=== PATIENT | female | born 1960 | race Caucasian/White ===

== ENCOUNTER 2021-03-21 19:17 | Inpatient (IN) ==
--- NOTE | 2021-03-21 19:35 | Emergency Department Note ---
HPI General Chief complaint: Nausea/Vomiting/Diarrhea Stated complaint: nausea/vomiting not taking insulin Time Seen by Provider: 03/21/21 19:30 Source: patient Mode of arrival: wheelchair Limitations: no limitations History of Present Illness HPI Narrative: Narrative: Patient is a 61-year-old female with insulin-dependent diabetes who has not been checking her blood sugars or using her insulin she is complaining of nausea and vomiting. She also reports a mild cough as well. Patient states she has been fully vaccinated for Covid as well as receiving a booster shot. She denies chest pain or abdominal pain her primary complaint is fatigue and vomiting. Related Data Home Medications Medication Instructions Recorded Confirmed aripiprazole 5 mg tablet 5 mg PO DAILY 06/27/18 03/21/21 atorvastatin 40 mg tablet 40 mg PO HS 06/27/18 03/21/21 brimonidine 0.2 %-timolol 0.5 % 1 drp BOTH EYES Q12H 06/27/18 01/22/21 eye drops furosemide 20 mg tablet 20 mg PO PRN PRN 06/27/18 01/22/21 gabapentin 800 mg tablet 800 mg PO TID 06/27/18 03/21/21 glucagon (human recombinant) 1 mg 1 mg IJ PRN PRN 06/27/18 03/21/21 solution for injection insulin aspart U-100 100 unit/mL 100 unit SQ DAILY 06/27/18 03/21/21 (3 mL) subcutaneous pen insulin glargine 100 unit/mL (3 100 unit SQ DAILY 06/27/18 03/21/21 mL) subcutaneous pen levothyroxine 137 mcg tablet 125 mcg PO DAILY 06/27/18 03/21/21 lisinopril 20 mg tablet 20 mg PO DAILY 06/27/18 01/22/21 morphine 100 mg capsule,extended 100 mg PO TID 06/27/18 03/21/21 release pellets omeprazole 20 mg capsule,delayed 20 mg PO ACB 06/27/18 01/22/21 release promethazine 25 mg tablet 25 mg PO PRN PRN 06/27/18 01/22/21 sertraline 100 mg tablet 100 mg PO DAILY 06/27/18 01/22/21 Allergies Allergy/AdvReac Type Severity Reaction Status Date / Time oxycodone AdvReac Mild Nausea Verified 01/24/20 14:19 Review of Systems ROS ROS Narrative: Narrative: All systems ED: reviewed and negative except as stated. PFSH Narrative Patient History Narrative: Narrative: Medical/Surgical/Family History All Active Problems (Updated 03/21/21 @ 23:35 by Homar Quintero DO) Vomiting (Acute) Hyperosmolar hyperglycemic state (HHS) (Acute) Myofascial pain (Acute) Metabolic syndrome (Chronic) Cervical spondylosis with radiculopathy (Chronic) Low back pain (Chronic) Lumbar stenosis with neurogenic claudication (Chronic) History of vaginal surgery (Chronic) History of elbow surgery (Chronic) History of right knee joint replacement (Chronic) History of surgery (Chronic) History of esophagogastroduodenoscopy (EGD) (Chronic) History of bunionectomy (Chronic) History of femur fracture (Chronic) History of hernia repair (Chronic) History of carpal tunnel release of both wrists (Chronic) History of total left knee replacement (Chronic) History of tonsillectomy (Chronic) History of thyroidectomy (Chronic) History of hysterectomy (Chronic) Arthropathy of cervical facet joint (Chronic) Diabetes mellitus with hyperosmolarity (Chronic) Hypertension (Chronic) Obesity (Chronic) COPD (chronic obstructive pulmonary disease) (Chronic) Depression (Chronic) GERD (gastroesophageal reflux disease) (Chronic) Anxiety disorder (Chronic) Hypothyroidism (Chronic) Osteoarthritis (Chronic) Peripheral neuropathy (Chronic) Peripheral edema (Chronic) Radiculopathy, lumbar region (Chronic) Chronic pain (Chronic) Disc displacement, lumbar (Chronic) Radiculopathy, cervical region (Chronic) Medical History Anxiety disorder Arthropathy of cervical facet joint Cervical spondylosis with radiculopathy Chronic pain COPD (chronic obstructive pulmonary disease) Depression Diabetes mellitus with hyperosmolarity Disc displacement, lumbar GERD (gastroesophageal reflux disease) History of femur fracture Hypertension Hypothyroidism Low back pain Lumbar stenosis with neurogenic claudication Metabolic syndrome Obesity Osteoarthritis Peripheral edema Peripheral neuropathy Radiculopathy, cervical region Radiculopathy, lumbar region Surgical History History of bunionectomy right tailors with v osteotomy History of carpal tunnel release of both wrists History of elbow surgery History of esophagogastroduodenoscopy (EGD) History of hernia repair History of hysterectomy History of right knee joint replacement History of surgery KEYUR #2 w/cath, w/sed 06/30/2019 KEYUR #1 w/cath, w/sed 06/13/19 TF MARGUERITE #3 Lt L4-5 w/sed 04/06/19 TF MARGUERITE #2 Lt. L4-5 w/sed 11/10/18 TF MARGUERITE #1 Lt L4-5 w/sed 10/27/18 History of surgery toenail removal, removal of left 2nd toe History of thyroidectomy History of tonsillectomy History of total left knee replacement History of vaginal surgery Family History Mother Hypertension Arthritis Father Hypertension Heart disease Alcohol abuse Diabetes Family/Other Diabetes Social History Smoking Status: Current every day smoker Alcohol Intake Frequency: does not drink Substance Use: does not use Exam Narrative Narrative: Narrative: General Limitations: no limitations General appearance: Present alert, in no apparent distress and thin Head Head: Present atraumatic and normocephalic Eye Eye: Present PERRL, EOMI and other (Exophthalmos noted) ENT ENT: Present normal oropharynx and mucous membranes dry Neck Neck: Present normal inspection, full ROM and trachea midline Chest Chest: Present normal inspection and symmetric chest wall rise Respiratory Respiratory: Present other (Breath sounds present bilateral lung huang, no respiratory distress mild adventitious lung sounds heard in bilateral lung huang.); Absent respiratory distress Cardiovascular Cardiovascular: Present regular rate and normal rhythm Adbominal Abdominal: Present soft and normal bowel sounds; Absent tenderness, guarding, rebound or organomegaly Rectal Rectal: Present deferred Extremities Extremities: Present normal inspection and full ROM; Absent tenderness Back Back: Present normal inspection and full ROM; Absent tenderness Neurological Neurological: Present alert, oriented X3 and CN II-XII intact Psychiatric Psychiatric: Present normal affect Skin Skin: Present warm (WNL); Absent rash Course Course Course Narrative: Work-up shows the patient to be hyperglycemic with an anion gap, no acidosis but positive for ketones. She is hyperglycemic hyperosmolar state. She received 2 L of IV fluids started on an insulin drip with IV fluids and potassium replacement. Attempted to admit the patient to our hospital here however we do not have available beds. Also attempted to transfer this patient to [facility] as well as [facility] however they do not have any available beds. Patient will board in the emergency department. Patient continued to have improvement in her symptoms. Her anion gap is improved. She is not acidotic her potassium has been replaced. Sugar is slowly trending down from 600 to the 300s. Attempted to admit the patient to our hospital here as well as [facility] and multiple other hospitals however they do not have any available beds. Patient will continue to board in the emergency department. The patient will be signed out at shift change to Dr. Luis Eduardo Ray. Vital Signs Vital signs: Vital Signs Temperature 97.0 F 03/21/21 19:19 Pulse Rate 75 03/21/21 19:19 Respiratory Rate 16 03/21/21 19:19 Blood Pressure 137/53 03/21/21 19:19 Pulse Oximetry (%) 98 03/21/21 19:19 Temperature 97.0 F 03/21/21 19:19 Pulse Rate 85 03/22/21 03:01 Respiratory Rate 16 03/21/21 19:19 Blood Pressure 121/44 03/22/21 03:01 Pulse Oximetry (%) 90 03/22/21 03:01 MDM MDM Narrative Medical decision making narrative: Narrative: Lab Data Result diagrams: 03/21/21 20:12 03/22/21 01:06 Labs: Lab Results 03/21/21 03/21/21 03/21/21 Range/Units 01:06 01:06 01:06 WBC (4.5-11.0) K/mcL RBC (3.59-5.38) M/mcL Hgb (11.2-15.7) g/dL Hct (34.1-44.9) % MCV (80.0-100.0) fL MCH (26.0-34.0) pg MCHC (31.0-36.0) g/dL RDW (11.5-14.5) % Plt Count (140-440) K/mcL MPV (7.4-10.4) fL Neut % (Auto) (38.0-78.0) % Lymph % (Auto) (15.5-49.0) % [place] % (Auto) (1.0-12.0) % Eos % (Auto) (0.0-7.0) % Baso % (Auto) (0.0-2.0) % Lymph # (Auto) (1.50-4.80) K/mcL [place] # (Auto) (0.10-0.90) K/mcL Eos # (Auto) (0.00-0.70) K/mcL Baso # (Auto) (0.00-0.30) K/mcL Absolute Neutrophils (1.80-8.00) K/mcL ABG Methemoglobin (0.4-1.5) % VBG pH (7.32-7.42) U VBG pCO2 (41.0-51.0) mmHg VBG pO2 (25.0-40.0) mmHg VBG HCO3 (24.0-28.0) mmol/L VBG Total CO2 (25.0-29.0) mmol/L VBG O2 Saturation (40.0-70.0) % VBG Base Excess (-2-3) VBG Lactic Acid 2.2 H (0.5-2.0) mmol/L Carboxyhemoglobin (0.0-1.5) % THgb Total Hemoglobin (12.0-15.0) gm/Dl Sodium 131 L (133-145) mmol/L Potassium 3.1 L (3.3-5.1) mmol/L Chloride 92 L (96-108) mmol/L Carbon Dioxide 14 L (22-30) mmol/L Anion Gap 25.0 H (8.0-16.0) BUN 29 H (6-20) mg/dL Creatinine 1.1 (0.6-1.1) mg/dL GFR Calculation 55 Glucose 507 H* (70-105) mg/dL Uric Acid 7.8 (2.5-8.0) mg/dL Calcium 7.3 L (8.6-10.4) mg/dL Phosphorus 3.0 (2.5-4.5) mg/dL Magnesium 1.7 TNP (1.6-2.5) mg/dL Total Bilirubin 0.6 (0.1-1.0) mg/dL Direct Bilirubin 0.2 (<0.3) mg/dL GGT 14 (5-36) U/L AST 13 (<32) U/L ALT 11 (<40) U/L Alkaline Phosphatase 85 (39-117) U/L Lactate Dehydrogenase 241 H (135-225) U/L Troponin T (<0.03) ng/mL NT-Pro-B Natriuret Pep (<125.0) pg/mL Total Protein 5.8 L (5.9-8.4) gm/dL Albumin 3.2 (3.2-5.2) gm/dL Globulin 2.6 (2.2-3.7) gm/dL Albumin/Globulin Ratio 1.2 (1.0-2.3) Triglycerides 136 (<150) mg/dL Lipase (7-60) U/L Beta-Hydroxybutyrate (<0.27) mmol/L TSH (0.27-5.01) uIU/mL Ethyl Alcohol (<0.010) gm/dL 03/21/21 03/21/21 03/21/21 Range/Units 01:06 20:12 20:12 WBC 11.8 H (4.5-11.0) K/mcL RBC 4.21 (3.59-5.38) M/mcL Hgb 12.7 (11.2-15.7) g/dL Hct 38.8 (34.1-44.9) % MCV 92.2 (80.0-100.0) fL MCH 30.2 (26.0-34.0) pg MCHC 32.7 (31.0-36.0) g/dL RDW 15.2 H (11.5-14.5) % Plt Count 321 (140-440) K/mcL MPV 10.7 H (7.4-10.4) fL Neut % (Auto) 88.4 H (38.0-78.0) % Lymph % (Auto) 5.7 L (15.5-49.0) % [place] % (Auto) 5.6 (1.0-12.0) % Eos % (Auto) 0.1 (0.0-7.0) % Baso % (Auto) 0.2 (0.0-2.0) % Lymph # (Auto) 0.67 L (1.50-4.80) K/mcL [place] # (Auto) 0.66 (0.10-0.90) K/mcL Eos # (Auto) 0.01 (0.00-0.70) K/mcL Baso # (Auto) 0.02 (0.00-0.30) K/mcL Absolute Neutrophils 10.45 H (1.80-8.00) K/mcL ABG Methemoglobin 0.3 L (0.4-1.5) % VBG pH 7.40 (7.32-7.42) U VBG pCO2 25.1 L (41.0-51.0) mmHg VBG pO2 142.3 H (25.0-40.0) mmHg VBG HCO3 15.2 L (24.0-28.0) mmol/L VBG Total CO2 15.9 L (25.0-29.0) mmol/L VBG O2 Saturation 93.7 H (40.0-70.0) % VBG Base Excess -8 L (-2-3) VBG Lactic Acid (0.5-2.0) mmol/L Carboxyhemoglobin 4.8 H (0.0-1.5) % THgb Total Hemoglobin 10.2 L (12.0-15.0) gm/Dl Sodium (133-145) mmol/L Potassium (3.3-5.1) mmol/L Chloride (96-108) mmol/L Carbon Dioxide (22-30) mmol/L Anion Gap (8.0-16.0) BUN (6-20) mg/dL Creatinine (0.6-1.1) mg/dL GFR Calculation Glucose (70-105) mg/dL Uric Acid (2.5-8.0) mg/dL Calcium (8.6-10.4) mg/dL Phosphorus (2.5-4.5) mg/dL Magnesium (1.6-2.5) mg/dL Total Bilirubin (0.1-1.0) mg/dL Direct Bilirubin (<0.3) mg/dL GGT (5-36) U/L AST (<32) U/L ALT (<40) U/L Alkaline Phosphatase (39-117) U/L Lactate Dehydrogenase (135-225) U/L Troponin T (<0.03) ng/mL NT-Pro-B Natriuret Pep (<125.0) pg/mL Total Protein (5.9-8.4) gm/dL Albumin (3.2-5.2) gm/dL Globulin (2.2-3.7) gm/dL Albumin/Globulin Ratio (1.0-2.3) Triglycerides (<150) mg/dL Lipase (7-60) U/L Beta-Hydroxybutyrate 6.47 H (<0.27) mmol/L TSH (0.27-5.01) uIU/mL Ethyl Alcohol (<0.010) gm/dL 03/21/21 03/21/21 03/21/21 Range/Units 20:12 20:12 20:13 WBC (4.5-11.0) K/mcL RBC (3.59-5.38) M/mcL Hgb (11.2-15.7) g/dL Hct (34.1-44.9) % MCV (80.0-100.0) fL MCH (26.0-34.0) pg MCHC (31.0-36.0) g/dL RDW (11.5-14.5) % Plt Count (140-440) K/mcL MPV (7.4-10.4) fL Neut % (Auto) (38.0-78.0) % Lymph % (Auto) (15.5-49.0) % [place] % (Auto) (1.0-12.0) % Eos % (Auto) (0.0-7.0) % Baso % (Auto) (0.0-2.0) % Lymph # (Auto) (1.50-4.80) K/mcL [place] # (Auto) (0.10-0.90) K/mcL Eos # (Auto) (0.00-0.70) K/mcL Baso # (Auto) (0.00-0.30) K/mcL Absolute Neutrophils (1.80-8.00) K/mcL ABG Methemoglobin (0.4-1.5) % VBG pH (7.32-7.42) U VBG pCO2 (41.0-51.0) mmHg VBG pO2 (25.0-40.0) mmHg VBG HCO3 (24.0-28.0) mmol/L VBG Total CO2 (25.0-29.0) mmol/L VBG O2 Saturation (40.0-70.0) % VBG Base Excess (-2-3) VBG Lactic Acid (0.5-2.0) mmol/L Carboxyhemoglobin (0.0-1.5) % THgb Total Hemoglobin (12.0-15.0) gm/Dl Sodium 134 (133-145) mmol/L Potassium 3.5 (3.3-5.1) mmol/L Chloride 83 L (96-108) mmol/L Carbon Dioxide 13 L (22-30) mmol/L Anion Gap 38.0 H (8.0-16.0) BUN 27 H (6-20) mg/dL Creatinine 1.0 (0.6-1.1) mg/dL GFR Calculation 61 Glucose 641 H* (70-105) mg/dL Uric Acid (2.5-8.0) mg/dL Calcium 8.7 (8.6-10.4) mg/dL Phosphorus (2.5-4.5) mg/dL Magnesium 1.9 (1.6-2.5) mg/dL Total Bilirubin 1.0 (0.1-1.0) mg/dL Direct Bilirubin (<0.3) mg/dL GGT (5-36) U/L AST 14 (<32) U/L ALT 12 (<40) U/L Alkaline Phosphatase 106 (39-117) U/L Lactate Dehydrogenase (135-225) U/L Troponin T (<0.03) ng/mL NT-Pro-B Natriuret Pep 2072.0 H (<125.0) pg/mL Total Protein 7.0 (5.9-8.4) gm/dL Albumin 4.0 (3.2-5.2) gm/dL Globulin 3.0 (2.2-3.7) gm/dL Albumin/Globulin Ratio 1.3 (1.0-2.3) Triglycerides (<150) mg/dL Lipase 17 (7-60) U/L Beta-Hydroxybutyrate (<0.27) mmol/L TSH 1.98 (0.27-5.01) uIU/mL Ethyl Alcohol < 0.010 (<0.010) gm/dL 03/21/21 03/21/21 03/21/21 Range/Units 20:13 20:13 20:13 WBC (4.5-11.0) K/mcL RBC (3.59-5.38) M/mcL Hgb (11.2-15.7) g/dL Hct (34.1-44.9) % MCV (80.0-100.0) fL MCH (26.0-34.0) pg MCHC (31.0-36.0) g/dL RDW (11.5-14.5) % Plt Count (140-440) K/mcL MPV (7.4-10.4) fL Neut % (Auto) (38.0-78.0) % Lymph % (Auto) (15.5-49.0) % [place] % (Auto) (1.0-12.0) % Eos % (Auto) (0.0-7.0) % Baso % (Auto) (0.0-2.0) % Lymph # (Auto) (1.50-4.80) K/mcL [place] # (Auto) (0.10-0.90) K/mcL Eos # (Auto) (0.00-0.70) K/mcL Baso # (Auto) (0.00-0.30) K/mcL Absolute Neutrophils (1.80-8.00) K/mcL ABG Methemoglobin 0.1 L (0.4-1.5) % VBG pH 7.40 (7.32-7.42) U VBG pCO2 27.3 L (41.0-51.0) mmHg VBG pO2 48.6 H (25.0-40.0) mmHg VBG HCO3 16.5 L (24.0-28.0) mmol/L VBG Total CO2 17.3 L (25.0-29.0) mmol/L VBG O2 Saturation 75.7 H (40.0-70.0) % VBG Base Excess -7 L (-2-3) VBG Lactic Acid 4.6 H* (0.5-2.0) mmol/L Carboxyhemoglobin 4.6 H (0.0-1.5) % THgb Total Hemoglobin 12.4 (12.0-15.0) gm/Dl Sodium (133-145) mmol/L Potassium (3.3-5.1) mmol/L Chloride (96-108) mmol/L Carbon Dioxide (22-30) mmol/L Anion Gap (8.0-16.0) BUN (6-20) mg/dL Creatinine (0.6-1.1) mg/dL GFR Calculation Glucose (70-105) mg/dL Uric Acid (2.5-8.0) mg/dL Calcium (8.6-10.4) mg/dL Phosphorus (2.5-4.5) mg/dL Magnesium (1.6-2.5) mg/dL Total Bilirubin (0.1-1.0) mg/dL Direct Bilirubin (<0.3) mg/dL GGT (5-36) U/L AST (<32) U/L ALT (<40) U/L Alkaline Phosphatase (39-117) U/L Lactate Dehydrogenase (135-225) U/L Troponin T < 0.01 (<0.03) ng/mL NT-Pro-B Natriuret Pep (<125.0) pg/mL Total Protein (5.9-8.4) gm/dL Albumin (3.2-5.2) gm/dL Globulin (2.2-3.7) gm/dL Albumin/Globulin Ratio (1.0-2.3) Triglycerides (<150) mg/dL Lipase (7-60) U/L Beta-Hydroxybutyrate (<0.27) mmol/L TSH (0.27-5.01) uIU/mL Ethyl Alcohol (<0.010) gm/dL 03/22/21 03/22/21 Range/Units 01:06 03:33 WBC (4.5-11.0) K/mcL RBC (3.59-5.38) M/mcL Hgb (11.2-15.7) g/dL Hct (34.1-44.9) % MCV (80.0-100.0) fL MCH (26.0-34.0) pg MCHC (31.0-36.0) g/dL RDW (11.5-14.5) % Plt Count (140-440) K/mcL MPV (7.4-10.4) fL Neut % (Auto) (38.0-78.0) % Lymph % (Auto) (15.5-49.0) % [place] % (Auto) (1.0-12.0) % Eos % (Auto) (0.0-7.0) % Baso % (Auto) (0.0-2.0) % Lymph # (Auto) (1.50-4.80) K/mcL [place] # (Auto) (0.10-0.90) K/mcL Eos # (Auto) (0.00-0.70) K/mcL Baso # (Auto) (0.00-0.30) K/mcL Absolute Neutrophils (1.80-8.00) K/mcL ABG Methemoglobin 0.3 L (0.4-1.5) % VBG pH 7.46 H (7.32-7.42) U VBG pCO2 29.9 L (41.0-51.0) mmHg VBG pO2 78.6 H (25.0-40.0) mmHg VBG HCO3 20.5 L (24.0-28.0) mmol/L VBG Total CO2 21.5 L (25.0-29.0) mmol/L VBG O2 Saturation 91.5 H (40.0-70.0) % VBG Base Excess -3 L (-2-3) VBG Lactic Acid (0.5-2.0) mmol/L Carboxyhemoglobin 3.7 H (0.0-1.5) % THgb Total Hemoglobin 10.1 L (12.0-15.0) gm/Dl Sodium TNP (133-145) mmol/L Potassium TNP (3.3-5.1) mmol/L Chloride TNP (96-108) mmol/L Carbon Dioxide TNP (22-30) mmol/L Anion Gap TNP (8.0-16.0) BUN TNP (6-20) mg/dL Creatinine TNP (0.6-1.1) mg/dL GFR Calculation TNP Glucose TNP (70-105) mg/dL Uric Acid (2.5-8.0) mg/dL Calcium TNP (8.6-10.4) mg/dL Phosphorus (2.5-4.5) mg/dL Magnesium (1.6-2.5) mg/dL Total Bilirubin (0.1-1.0) mg/dL Direct Bilirubin (<0.3) mg/dL GGT (5-36) U/L AST (<32) U/L ALT (<40) U/L Alkaline Phosphatase (39-117) U/L Lactate Dehydrogenase (135-225) U/L Troponin T (<0.03) ng/mL NT-Pro-B Natriuret Pep (<125.0) pg/mL Total Protein (5.9-8.4) gm/dL Albumin (3.2-5.2) gm/dL Globulin (2.2-3.7) gm/dL Albumin/Globulin Ratio (1.0-2.3) Triglycerides (<150) mg/dL Lipase (7-60) U/L Beta-Hydroxybutyrate (<0.27) mmol/L TSH (0.27-5.01) uIU/mL Ethyl Alcohol (<0.010) gm/dL Discharge Plan Patient/Caregiver Discharge Instructions Pt seen by CONTROL SYSTEMS DESIGNER/PA only: No Clinical Impression: Vomiting, Hyperosmolar hyperglycemic state (HHS) Patient Disposition: Still a Patient Condition: Fair Follow up with: Leonor Casillas MD [Primary Care Provider] - Prescriptions: No Action atorvastatin 40 MG tablet 40 mg PO HS 0RF levothyroxine 137 MCG tablet 125 mcg PO DAILY 0RF lisinopril 20 MG tablet 20 mg PO DAILY 0RF Label Comments: currently not taking sertraline 100 MG tablet 100 mg PO DAILY 0RF gabapentin 800 MG tablet 800 mg PO TID 0RF promethazine 25 MG tablet 25 mg PO PRN PRN (Reason: Nausea) 0RF glucagon (human recombinant) 1 MG recon soln 1 mg IJ PRN PRN (Reason: Hypoglycemia) 0RF omeprazole 20 MG capsule 20 mg PO ACB 0RF furosemide 20 MG tablet 20 mg PO PRN PRN (Reason: Edema) 0RF insulin aspart U-100 100 UNIT/ML insulin pen 100 unit SQ DAILY 0RF aripiprazole 5 MG tablet 5 mg PO DAILY 0RF morphine 100 MG capsule,extend.release pellets 100 mg PO TID 0RF insulin glargine 100 UNIT/ML insulin pen 100 unit SQ DAILY 0RF brimonidine-timolol 5 ML drops 1 drp BOTH EYES Q12H 0RF
[2021-03-21] MEDS ORDERED: 0.9 % SODIUM CHLORIDE 1,000 ML IV ONE (19:40)
[2021-03-21] MEDS ORDERED: ONDANSETRON 4 MG/2 ML VIAL IV ONE (19:40)
[2021-03-21 20:34] LABS: ABG Methemoglobin 0.1 % (0.4-1.5); Total Hemoglobin 12.4 gm/Dl (12.0-15.0); VBG Base Excess -7 (-2-3); VBG HCO3 16.5 mmol/L (24.0-28.0); VBG Oxygen Saturation 75.7 % (40.0-70.0); VBG PCO2 27.3 mmHg (41.0-51.0); VBG PO2 48.6 mmHg (25.0-40.0); VBG Total CO2 17.3 mmol/L (25.0-29.0)
[2021-03-21 20:35] LABS: Basophils # (Auto) 0.02 K/mcL (0.00-0.30); Basophils % (Auto) 0.2 % (0.0-2.0); Eosinophils # (Auto) 0.01 K/mcL (0.00-0.70); Eosinophils % (Auto) 0.1 % (0.0-7.0); Hematocrit 38.8 % (34.1-44.9); Hemoglobin 12.7 g/dL (11.2-15.7); Lymphocytes # (Auto) 0.67 K/mcL (1.50-4.80); Lymphocytes % (Auto) 5.7 % (15.5-49.0); Mean Cell Volume 92.2 fL (80.0-100.0); Mean Corpuscular HGB Conc 32.7 g/dL (31.0-36.0); Mean Platelet Volume 10.7 fL (7.4-10.4); Monocytes # (Auto) 0.66 K/mcL (0.10-0.90); Monocytes % (Auto) 5.6 % (1.0-12.0); Neutrophils % (Auto) 88.4 % (38.0-78.0); Platelet Count 321 K/mcL (140-440); RBC 4.21 M/mcL (3.59-5.38); Red Cell Distribution Width 15.2 % (11.5-14.5); WBC 11.8 K/mcL (4.5-11.0)
[2021-03-21 21:11] LABS: Alcohol, Blood < 10.0 mg/dL; Alcohol,Blood < 0.010 gm/dL (<0.010)
[2021-03-21 21:34] LABS: Thyroid Stimulating Hormone 1.98 uIU/mL (0.27-5.01)
[2021-03-21 21:39] LABS: ALT/SGPT 12 U/L (<40); AST/SGOT 14 U/L (<32); Albumin/Globulin Ratio 1.3 (1.0-2.3); Alkaline Phosphatase 106 U/L (39-117); Blood Urea Nitrogen 27 mg/dL (6-20); Calcium 8.7 mg/dL (8.6-10.4); Carbon Dioxide 13 mmol/L (22-30); Chloride 83 mmol/L (96-108); Glomerular Filtration Rate 61; Glucose 641 mg/dL (70-105)
[2021-03-21] MEDS ORDERED: 0.9 % SODIUM CHLORIDE 2,000 ML IV ONE (21:39)
[2021-03-21] MEDS ORDERED: POTASSIUM CHLORIDE 20 MEQ in DEXTROSE 5% IN WATER 250 ML IV ONE (22:04)
[2021-03-21] MEDS ORDERED: INSULIN REGULAR, HUMAN 50 UNIT in 0.9 % SODIUM CHLORIDE 99.5 ML IV SCH (22:15)
[2021-03-21 22:45] LABS: Beta Hydroxybutyrate 6.47 mmol/L (<0.27)
[2021-03-22 01:35] LABS: ABG Methemoglobin 0.3 % (0.4-1.5); Total Hemoglobin 10.2 gm/Dl (12.0-15.0); VBG Base Excess -8 (-2-3); VBG HCO3 15.2 mmol/L (24.0-28.0); VBG Oxygen Saturation 93.7 % (40.0-70.0); VBG PCO2 25.1 mmHg (41.0-51.0); VBG PO2 142.3 mmHg (25.0-40.0); VBG Total CO2 15.9 mmol/L (25.0-29.0)
[2021-03-22 01:50] LABS: Carbon Dioxide 14 mmol/L (22-30); Chloride 92 mmol/L (96-108)
[2021-03-22 01:53] LABS: ALT/SGPT 11 U/L (<40); AST/SGOT 13 U/L (<32); Albumin 3.2 gm/dL (3.2-5.2); Albumin/Globulin Ratio 1.2 (1.0-2.3); Alkaline Phosphatase 85 U/L (39-117); Bilirubin,Direct 0.2 mg/dL (<0.3); Bilirubin,Total 0.6 mg/dL (0.1-1.0); Blood Urea Nitrogen 29 mg/dL (6-20); Calcium 7.3 mg/dL (8.6-10.4); Globulin 2.6 gm/dL (2.2-3.7); Glomerular Filtration Rate 55; Glucose 507 mg/dL (70-105); Lactate Dehydrogenase 241 U/L (135-225); Triglycerides 136 mg/dL (<150); Uric Acid 7.8 mg/dL (2.5-8.0)
--- NOTE | 2021-03-22 02:22 | XRay Report ---
CLINICAL INFORMATION: Cough COMPARISON: 03/25/2007 TECHNIQUE: Portable FINDINGS: The heart is now mildly enlarged. Mediastinum is unremarkable. Upper lobe pulmonary vessels are mildly distended and there is mild interstitial edema throughout both lungs. There may be a superimposed infiltrate developing in the right base. Small right pleural effusion. IMPRESSION: Mild CHF. Possible superimposed developing right basilar infiltrate. Consider: Diuretic trial and repeat two view upright chest x-ray to better evaluate the lungs Interpreted and Authenticated by: Rodri Walter 03/22/21
[2021-03-22 03:56] LABS: ABG Methemoglobin 0.3 % (0.4-1.5); Total Hemoglobin 10.1 gm/Dl (12.0-15.0); VBG Base Excess -3 (-2-3); VBG HCO3 20.5 mmol/L (24.0-28.0); VBG Oxygen Saturation 91.5 % (40.0-70.0); VBG PCO2 29.9 mmHg (41.0-51.0); VBG PH 7.46 U (7.32-7.42); VBG PO2 78.6 mmHg (25.0-40.0); VBG Total CO2 21.5 mmol/L (25.0-29.0)
[2021-03-22] MEDS ORDERED: POTASSIUM CHLORIDE 40 MEQ in DEXTROSE 5% IN WATER 500 ML IV ONE (04:07)
[2021-03-22] MEDS ORDERED: 0.9 % SODIUM CHLORIDE 1,000 ML IV SCH (04:15)
[2021-03-22] MEDS ORDERED: POTASSIUM CHLORIDE 20 MEQ/10 ML VIAL IV ONE (04:18)
[2021-03-22] MEDS: DEXTROSE 5%-LR 1,000 ML IV SCH ×2 (06:35→13:44)
[2021-03-22 06:52] LABS: POC Blood Urea Nitrogen 25 mg/dL (6-20); POC CO2 21 mmol/L (22-30); POC Calcium, Ionized 1.06 mmEq/L (1.16-1.32); POC Chloride 99 mEq/L (96-108); POC Creatinine 0.8 mg/dL (0.6-1.2); POC Glucose, Random 232 mg/dL (70-105); POC Hematocrit 33 % (36-48); POC Potassium 3.4 mEql/L (3.3-5.1); POC Sodium 136 mEq/L (133-145)
--- NOTE | 2021-03-22 07:15 | Emergency Department Note ---
Course Course Course Narrative: I assumed care from Dr. Love at the change of shift. I evaluated the patient in person at 7:15 AM. She is awake and alert and answers questions appropriately. She reports improvement in her symptoms. Vital Signs Vital signs: Vital Signs Temperature 97.0 F 03/21/21 19:19 Pulse Rate 75 03/21/21 19:19 Respiratory Rate 16 03/21/21 19:19 Blood Pressure 137/53 03/21/21 19:19 Pulse Oximetry (%) 98 03/21/21 19:19 Temperature 97.0 F 03/21/21 19:19 Pulse Rate 77 03/22/21 14:01 Respiratory Rate 18 03/22/21 14:01 Blood Pressure 140/53 03/22/21 14:01 Pulse Oximetry (%) 94 03/22/21 14:01 MDM MDM Narrative Medical decision making narrative: Patient was eventually weaned off of the insulin infusion. She was able to tolerate food and small amounts but continued to have poor appetite. She remained somewhat confused throughout her emergency department stay. Given this and the recent repeated head trauma I obtained a CT scan that does not reveal any subdural hematoma. Given the chronicity of her mental status changes I do not think this is due to encephalitis or meningitis. I discussed the test results with the patient and explained my concerns that she is not doing well managing her medications at home and I do not think she is safe for discharge at this time. Patient was reluctantly agreeable to hospital admission. At the time of admission she is oriented to person place and situation but thinks the year is 1960 so she clearly does not have capacity to leave AGAINST MEDICAL ADVICE at this time. I discussed the patient's history examination and diagnostic findings with Dr. Lyons, who agrees with the plan of care and accepts admission. Lab Data Lab results reviewed: Yes I reviewed the patient's lab results. Result diagrams: 03/21/21 20:12 03/22/21 09:09 Labs: Lab Results 03/21/21 03/21/21 03/21/21 Range/Units 01:06 01:06 01:06 WBC (4.5-11.0) K/mcL RBC (3.59-5.38) M/mcL Hgb (11.2-15.7) g/dL Hct (34.1-44.9) % POC Hct (36-48) % MCV (80.0-100.0) fL MCH (26.0-34.0) pg MCHC (31.0-36.0) g/dL RDW (11.5-14.5) % Plt Count (140-440) K/mcL MPV (7.4-10.4) fL Neut % (Auto) (38.0-78.0) % Lymph % (Auto) (15.5-49.0) % [place] % (Auto) (1.0-12.0) % Eos % (Auto) (0.0-7.0) % Baso % (Auto) (0.0-2.0) % Lymph # (Auto) (1.50-4.80) K/mcL [place] # (Auto) (0.10-0.90) K/mcL Eos # (Auto) (0.00-0.70) K/mcL Baso # (Auto) (0.00-0.30) K/mcL Absolute Neutrophils (1.80-8.00) K/mcL ABG Methemoglobin (0.4-1.5) % VBG pH (7.32-7.42) U VBG pCO2 (41.0-51.0) mmHg VBG pO2 (25.0-40.0) mmHg VBG HCO3 (24.0-28.0) mmol/L VBG Total CO2 (25.0-29.0) mmol/L VBG O2 Saturation (40.0-70.0) % VBG Base Excess (-2-3) VBG Lactic Acid 2.2 H (0.5-2.0) mmol/L Carboxyhemoglobin (0.0-1.5) % THgb Total Hemoglobin (12.0-15.0) gm/Dl POC Sodium (133-145) mEq/L Sodium 131 L (133-145) mmol/L POC Potassium (3.3-5.1) mEql/L Potassium 3.1 L (3.3-5.1) mmol/L POC Chloride (96-108) mEq/L Chloride 92 L (96-108) mmol/L Carbon Dioxide 14 L (22-30) mmol/L POC Total CO2 (22-30) mmol/L Anion Gap 25.0 H (8.0-16.0) POC BUN (6-20) mg/dL BUN 29 H (6-20) mg/dL Creatinine 1.1 (0.6-1.1) mg/dL POC Creatinine (0.6-1.2) mg/dL GFR Calculation 55 Glucose 507 H* (70-105) mg/dL POC Glucose (70-105) mg/dL Uric Acid 7.8 (2.5-8.0) mg/dL Calcium 7.3 L (8.6-10.4) mg/dL POC WB Ioniz Calcium (1.16-1.32) mmEq/L Phosphorus 3.0 (2.5-4.5) mg/dL Magnesium 1.7 TNP (1.6-2.5) mg/dL Total Bilirubin 0.6 (0.1-1.0) mg/dL Direct Bilirubin 0.2 (<0.3) mg/dL GGT 14 (5-36) U/L AST 13 (<32) U/L ALT 11 (<40) U/L Alkaline Phosphatase 85 (39-117) U/L Lactate Dehydrogenase 241 H (135-225) U/L Troponin T (<0.03) ng/mL NT-Pro-B Natriuret Pep (<125.0) pg/mL Total Protein 5.8 L (5.9-8.4) gm/dL Albumin 3.2 (3.2-5.2) gm/dL Globulin 2.6 (2.2-3.7) gm/dL Albumin/Globulin Ratio 1.2 (1.0-2.3) Triglycerides 136 (<150) mg/dL Lipase (7-60) U/L Beta-Hydroxybutyrate (<0.27) mmol/L TSH (0.27-5.01) uIU/mL Ethyl Alcohol (<0.010) gm/dL 03/21/21 03/21/21 03/21/21 Range/Units 01:06 20:12 20:12 WBC 11.8 H (4.5-11.0) K/mcL RBC 4.21 (3.59-5.38) M/mcL Hgb 12.7 (11.2-15.7) g/dL Hct 38.8 (34.1-44.9) % POC Hct (36-48) % MCV 92.2 (80.0-100.0) fL MCH 30.2 (26.0-34.0) pg MCHC 32.7 (31.0-36.0) g/dL RDW 15.2 H (11.5-14.5) % Plt Count 321 (140-440) K/mcL MPV 10.7 H (7.4-10.4) fL Neut % (Auto) 88.4 H (38.0-78.0) % Lymph % (Auto) 5.7 L (15.5-49.0) % [place] % (Auto) 5.6 (1.0-12.0) % Eos % (Auto) 0.1 (0.0-7.0) % Baso % (Auto) 0.2 (0.0-2.0) % Lymph # (Auto) 0.67 L (1.50-4.80) K/mcL [place] # (Auto) 0.66 (0.10-0.90) K/mcL Eos # (Auto) 0.01 (0.00-0.70) K/mcL Baso # (Auto) 0.02 (0.00-0.30) K/mcL Absolute Neutrophils 10.45 H (1.80-8.00) K/mcL ABG Methemoglobin 0.3 L (0.4-1.5) % VBG pH 7.40 (7.32-7.42) U VBG pCO2 25.1 L (41.0-51.0) mmHg VBG pO2 142.3 H (25.0-40.0) mmHg VBG HCO3 15.2 L (24.0-28.0) mmol/L VBG Total CO2 15.9 L (25.0-29.0) mmol/L VBG O2 Saturation 93.7 H (40.0-70.0) % VBG Base Excess -8 L (-2-3) VBG Lactic Acid (0.5-2.0) mmol/L Carboxyhemoglobin 4.8 H (0.0-1.5) % THgb Total Hemoglobin 10.2 L (12.0-15.0) gm/Dl POC Sodium (133-145) mEq/L Sodium (133-145) mmol/L POC Potassium (3.3-5.1) mEql/L Potassium (3.3-5.1) mmol/L POC Chloride (96-108) mEq/L Chloride (96-108) mmol/L Carbon Dioxide (22-30) mmol/L POC Total CO2 (22-30) mmol/L Anion Gap (8.0-16.0) POC BUN (6-20) mg/dL BUN (6-20) mg/dL Creatinine (0.6-1.1) mg/dL POC Creatinine (0.6-1.2) mg/dL GFR Calculation Glucose (70-105) mg/dL POC Glucose (70-105) mg/dL Uric Acid (2.5-8.0) mg/dL Calcium (8.6-10.4) mg/dL POC WB Ioniz Calcium (1.16-1.32) mmEq/L Phosphorus (2.5-4.5) mg/dL Magnesium (1.6-2.5) mg/dL Total Bilirubin (0.1-1.0) mg/dL Direct Bilirubin (<0.3) mg/dL GGT (5-36) U/L AST (<32) U/L ALT (<40) U/L Alkaline Phosphatase (39-117) U/L Lactate Dehydrogenase (135-225) U/L Troponin T (<0.03) ng/mL NT-Pro-B Natriuret Pep (<125.0) pg/mL Total Protein (5.9-8.4) gm/dL Albumin (3.2-5.2) gm/dL Globulin (2.2-3.7) gm/dL Albumin/Globulin Ratio (1.0-2.3) Triglycerides (<150) mg/dL Lipase (7-60) U/L Beta-Hydroxybutyrate 6.47 H (<0.27) mmol/L TSH (0.27-5.01) uIU/mL Ethyl Alcohol (<0.010) gm/dL 03/21/21 03/21/21 03/21/21 Range/Units 20:12 20:12 20:13 WBC (4.5-11.0) K/mcL RBC (3.59-5.38) M/mcL Hgb (11.2-15.7) g/dL Hct (34.1-44.9) % POC Hct (36-48) % MCV (80.0-100.0) fL MCH (26.0-34.0) pg MCHC (31.0-36.0) g/dL RDW (11.5-14.5) % Plt Count (140-440) K/mcL MPV (7.4-10.4) fL Neut % (Auto) (38.0-78.0) % Lymph % (Auto) (15.5-49.0) % [place] % (Auto) (1.0-12.0) % Eos % (Auto) (0.0-7.0) % Baso % (Auto) (0.0-2.0) % Lymph # (Auto) (1.50-4.80) K/mcL [place] # (Auto) (0.10-0.90) K/mcL Eos # (Auto) (0.00-0.70) K/mcL Baso # (Auto) (0.00-0.30) K/mcL Absolute Neutrophils (1.80-8.00) K/mcL ABG Methemoglobin (0.4-1.5) % VBG pH (7.32-7.42) U VBG pCO2 (41.0-51.0) mmHg VBG pO2 (25.0-40.0) mmHg VBG HCO3 (24.0-28.0) mmol/L VBG Total CO2 (25.0-29.0) mmol/L VBG O2 Saturation (40.0-70.0) % VBG Base Excess (-2-3) VBG Lactic Acid (0.5-2.0) mmol/L Carboxyhemoglobin (0.0-1.5) % THgb Total Hemoglobin (12.0-15.0) gm/Dl POC Sodium (133-145) mEq/L Sodium 134 (133-145) mmol/L POC Potassium (3.3-5.1) mEql/L Potassium 3.5 (3.3-5.1) mmol/L POC Chloride (96-108) mEq/L Chloride 83 L (96-108) mmol/L Carbon Dioxide 13 L (22-30) mmol/L POC Total CO2 (22-30) mmol/L Anion Gap 38.0 H (8.0-16.0) POC BUN (6-20) mg/dL BUN 27 H (6-20) mg/dL Creatinine 1.0 (0.6-1.1) mg/dL POC Creatinine (0.6-1.2) mg/dL GFR Calculation 61 Glucose 641 H* (70-105) mg/dL POC Glucose (70-105) mg/dL Uric Acid (2.5-8.0) mg/dL Calcium 8.7 (8.6-10.4) mg/dL POC WB Ioniz Calcium (1.16-1.32) mmEq/L Phosphorus (2.5-4.5) mg/dL Magnesium 1.9 (1.6-2.5) mg/dL Total Bilirubin 1.0 (0.1-1.0) mg/dL Direct Bilirubin (<0.3) mg/dL GGT (5-36) U/L AST 14 (<32) U/L ALT 12 (<40) U/L Alkaline Phosphatase 106 (39-117) U/L Lactate Dehydrogenase (135-225) U/L Troponin T (<0.03) ng/mL NT-Pro-B Natriuret Pep 2072.0 H (<125.0) pg/mL Total Protein 7.0 (5.9-8.4) gm/dL Albumin 4.0 (3.2-5.2) gm/dL Globulin 3.0 (2.2-3.7) gm/dL Albumin/Globulin Ratio 1.3 (1.0-2.3) Triglycerides (<150) mg/dL Lipase 17 (7-60) U/L Beta-Hydroxybutyrate (<0.27) mmol/L TSH 1.98 (0.27-5.01) uIU/mL Ethyl Alcohol < 0.010 (<0.010) gm/dL 03/21/21 03/21/21 03/21/21 Range/Units 20:13 20:13 20:13 WBC (4.5-11.0) K/mcL RBC (3.59-5.38) M/mcL Hgb (11.2-15.7) g/dL Hct (34.1-44.9) % POC Hct (36-48) % MCV (80.0-100.0) fL MCH (26.0-34.0) pg MCHC (31.0-36.0) g/dL RDW (11.5-14.5) % Plt Count (140-440) K/mcL MPV (7.4-10.4) fL Neut % (Auto) (38.0-78.0) % Lymph % (Auto) (15.5-49.0) % [place] % (Auto) (1.0-12.0) % Eos % (Auto) (0.0-7.0) % Baso % (Auto) (0.0-2.0) % Lymph # (Auto) (1.50-4.80) K/mcL [place] # (Auto) (0.10-0.90) K/mcL Eos # (Auto) (0.00-0.70) K/mcL Baso # (Auto) (0.00-0.30) K/mcL Absolute Neutrophils (1.80-8.00) K/mcL ABG Methemoglobin 0.1 L (0.4-1.5) % VBG pH 7.40 (7.32-7.42) U VBG pCO2 27.3 L (41.0-51.0) mmHg VBG pO2 48.6 H (25.0-40.0) mmHg VBG HCO3 16.5 L (24.0-28.0) mmol/L VBG Total CO2 17.3 L (25.0-29.0) mmol/L VBG O2 Saturation 75.7 H (40.0-70.0) % VBG Base Excess -7 L (-2-3) VBG Lactic Acid 4.6 H* (0.5-2.0) mmol/L Carboxyhemoglobin 4.6 H (0.0-1.5) % THgb Total Hemoglobin 12.4 (12.0-15.0) gm/Dl POC Sodium (133-145) mEq/L Sodium (133-145) mmol/L POC Potassium (3.3-5.1) mEql/L Potassium (3.3-5.1) mmol/L POC Chloride (96-108) mEq/L Chloride (96-108) mmol/L Carbon Dioxide (22-30) mmol/L POC Total CO2 (22-30) mmol/L Anion Gap (8.0-16.0) POC BUN (6-20) mg/dL BUN (6-20) mg/dL Creatinine (0.6-1.1) mg/dL POC Creatinine (0.6-1.2) mg/dL GFR Calculation Glucose (70-105) mg/dL POC Glucose (70-105) mg/dL Uric Acid (2.5-8.0) mg/dL Calcium (8.6-10.4) mg/dL POC WB Ioniz Calcium (1.16-1.32) mmEq/L Phosphorus (2.5-4.5) mg/dL Magnesium (1.6-2.5) mg/dL Total Bilirubin (0.1-1.0) mg/dL Direct Bilirubin (<0.3) mg/dL GGT (5-36) U/L AST (<32) U/L ALT (<40) U/L Alkaline Phosphatase (39-117) U/L Lactate Dehydrogenase (135-225) U/L Troponin T < 0.01 (<0.03) ng/mL NT-Pro-B Natriuret Pep (<125.0) pg/mL Total Protein (5.9-8.4) gm/dL Albumin (3.2-5.2) gm/dL Globulin (2.2-3.7) gm/dL Albumin/Globulin Ratio (1.0-2.3) Triglycerides (<150) mg/dL Lipase (7-60) U/L Beta-Hydroxybutyrate (<0.27) mmol/L TSH (0.27-5.01) uIU/mL Ethyl Alcohol (<0.010) gm/dL 03/22/21 03/22/21 03/22/21 Range/Units 01:06 03:33 06:45 WBC (4.5-11.0) K/mcL RBC (3.59-5.38) M/mcL Hgb (11.2-15.7) g/dL Hct (34.1-44.9) % POC Hct 33 L (36-48) % MCV (80.0-100.0) fL MCH (26.0-34.0) pg MCHC (31.0-36.0) g/dL RDW (11.5-14.5) % Plt Count (140-440) K/mcL MPV (7.4-10.4) fL Neut % (Auto) (38.0-78.0) % Lymph % (Auto) (15.5-49.0) % [place] % (Auto) (1.0-12.0) % Eos % (Auto) (0.0-7.0) % Baso % (Auto) (0.0-2.0) % Lymph # (Auto) (1.50-4.80) K/mcL [place] # (Auto) (0.10-0.90) K/mcL Eos # (Auto) (0.00-0.70) K/mcL Baso # (Auto) (0.00-0.30) K/mcL Absolute Neutrophils (1.80-8.00) K/mcL ABG Methemoglobin 0.3 L (0.4-1.5) % VBG pH 7.46 H (7.32-7.42) U VBG pCO2 29.9 L (41.0-51.0) mmHg VBG pO2 78.6 H (25.0-40.0) mmHg VBG HCO3 20.5 L (24.0-28.0) mmol/L VBG Total CO2 21.5 L (25.0-29.0) mmol/L VBG O2 Saturation 91.5 H (40.0-70.0) % VBG Base Excess -3 L (-2-3) VBG Lactic Acid (0.5-2.0) mmol/L Carboxyhemoglobin 3.7 H (0.0-1.5) % THgb Total Hemoglobin 10.1 L (12.0-15.0) gm/Dl POC Sodium 136 (133-145) mEq/L Sodium TNP (133-145) mmol/L POC Potassium 3.4 (3.3-5.1) mEql/L Potassium TNP (3.3-5.1) mmol/L POC Chloride 99 (96-108) mEq/L Chloride TNP (96-108) mmol/L Carbon Dioxide TNP (22-30) mmol/L POC Total CO2 21 L (22-30) mmol/L Anion Gap TNP (8.0-16.0) POC BUN 25 H (6-20) mg/dL BUN TNP (6-20) mg/dL Creatinine TNP (0.6-1.1) mg/dL POC Creatinine 0.8 (0.6-1.2) mg/dL GFR Calculation TNP Glucose TNP (70-105) mg/dL POC Glucose 232 H (70-105) mg/dL Uric Acid (2.5-8.0) mg/dL Calcium TNP (8.6-10.4) mg/dL POC WB Ioniz Calcium 1.06 L (1.16-1.32) mmEq/L Phosphorus (2.5-4.5) mg/dL Magnesium (1.6-2.5) mg/dL Total Bilirubin (0.1-1.0) mg/dL Direct Bilirubin (<0.3) mg/dL GGT (5-36) U/L AST (<32) U/L ALT (<40) U/L Alkaline Phosphatase (39-117) U/L Lactate Dehydrogenase (135-225) U/L Troponin T (<0.03) ng/mL NT-Pro-B Natriuret Pep (<125.0) pg/mL Total Protein (5.9-8.4) gm/dL Albumin (3.2-5.2) gm/dL Globulin (2.2-3.7) gm/dL Albumin/Globulin Ratio (1.0-2.3) Triglycerides (<150) mg/dL Lipase (7-60) U/L Beta-Hydroxybutyrate (<0.27) mmol/L TSH (0.27-5.01) uIU/mL Ethyl Alcohol (<0.010) gm/dL 03/22/21 Range/Units 09:09 WBC (4.5-11.0) K/mcL RBC (3.59-5.38) M/mcL Hgb (11.2-15.7) g/dL Hct (34.1-44.9) % POC Hct (36-48) % MCV (80.0-100.0) fL MCH (26.0-34.0) pg MCHC (31.0-36.0) g/dL RDW (11.5-14.5) % Plt Count (140-440) K/mcL MPV (7.4-10.4) fL Neut % (Auto) (38.0-78.0) % Lymph % (Auto) (15.5-49.0) % [place] % (Auto) (1.0-12.0) % Eos % (Auto) (0.0-7.0) % Baso % (Auto) (0.0-2.0) % Lymph # (Auto) (1.50-4.80) K/mcL [place] # (Auto) (0.10-0.90) K/mcL Eos # (Auto) (0.00-0.70) K/mcL Baso # (Auto) (0.00-0.30) K/mcL Absolute Neutrophils (1.80-8.00) K/mcL ABG Methemoglobin (0.4-1.5) % VBG pH (7.32-7.42) U VBG pCO2 (41.0-51.0) mmHg VBG pO2 (25.0-40.0) mmHg VBG HCO3 (24.0-28.0) mmol/L VBG Total CO2 (25.0-29.0) mmol/L VBG O2 Saturation (40.0-70.0) % VBG Base Excess (-2-3) VBG Lactic Acid (0.5-2.0) mmol/L Carboxyhemoglobin (0.0-1.5) % THgb Total Hemoglobin (12.0-15.0) gm/Dl POC Sodium (133-145) mEq/L Sodium 133 (133-145) mmol/L POC Potassium (3.3-5.1) mEql/L Potassium 3.2 L (3.3-5.1) mmol/L POC Chloride (96-108) mEq/L Chloride 99 (96-108) mmol/L Carbon Dioxide 22 (22-30) mmol/L POC Total CO2 (22-30) mmol/L Anion Gap 12.0 (8.0-16.0) POC BUN (6-20) mg/dL BUN 23 H (6-20) mg/dL Creatinine 0.9 (0.6-1.1) mg/dL POC Creatinine (0.6-1.2) mg/dL GFR Calculation 69 Glucose 125 H (70-105) mg/dL POC Glucose (70-105) mg/dL Uric Acid (2.5-8.0) mg/dL Calcium 7.8 L (8.6-10.4) mg/dL POC WB Ioniz Calcium (1.16-1.32) mmEq/L Phosphorus (2.5-4.5) mg/dL Magnesium (1.6-2.5) mg/dL Total Bilirubin (0.1-1.0) mg/dL Direct Bilirubin (<0.3) mg/dL GGT (5-36) U/L AST (<32) U/L ALT (<40) U/L Alkaline Phosphatase (39-117) U/L Lactate Dehydrogenase (135-225) U/L Troponin T (<0.03) ng/mL NT-Pro-B Natriuret Pep (<125.0) pg/mL Total Protein (5.9-8.4) gm/dL Albumin (3.2-5.2) gm/dL Globulin (2.2-3.7) gm/dL Albumin/Globulin Ratio (1.0-2.3) Triglycerides (<150) mg/dL Lipase (7-60) U/L Beta-Hydroxybutyrate (<0.27) mmol/L TSH (0.27-5.01) uIU/mL Ethyl Alcohol (<0.010) gm/dL Discharge Plan Patient/Caregiver Discharge Instructions Pt seen by [employer]/PA only: No Clinical Impression: Vomiting, Acute hyperglycemia Patient Disposition: Xfer As Inpt ([facility]) Condition: Fair Follow up with: Leonor Casillas MD [Primary Care Provider] - Prescriptions: No Action atorvastatin 40 MG tablet 40 mg PO HS 0RF levothyroxine 137 MCG tablet 125 mcg PO DAILY 0RF lisinopril 20 MG tablet 20 mg PO DAILY 0RF Label Comments: currently not taking sertraline 100 MG tablet 100 mg PO DAILY 0RF gabapentin 800 MG tablet 800 mg PO TID 0RF promethazine 25 MG tablet 25 mg PO PRN PRN (Reason: Nausea) 0RF glucagon (human recombinant) 1 MG recon soln 1 mg IJ PRN PRN (Reason: Hypoglycemia) 0RF omeprazole 20 MG capsule 20 mg PO ACB 0RF furosemide 20 MG tablet 20 mg PO PRN PRN (Reason: Edema) 0RF insulin aspart U-100 100 UNIT/ML insulin pen 100 unit SQ DAILY 0RF aripiprazole 5 MG tablet 5 mg PO DAILY 0RF morphine 100 MG capsule,extend.release pellets 100 mg PO TID 0RF insulin glargine 100 UNIT/ML insulin pen 100 unit SQ DAILY 0RF brimonidine-timolol 5 ML drops 1 drp BOTH EYES Q12H 0RF
[2021-03-22 10:33] LABS: Blood Urea Nitrogen 23 mg/dL (6-20); Calcium 7.8 mg/dL (8.6-10.4); Carbon Dioxide 22 mmol/L (22-30); Chloride 99 mmol/L (96-108); Glomerular Filtration Rate 69; Glucose 125 mg/dL (70-105)
[2021-03-22] MEDS ORDERED: INSULIN GLARGINE, HUMAN 1 UNIT/0.01 ML SQ ONE (10:40)
[2021-03-22] MEDS ORDERED: POTASSIUM CHLORIDE 20 MEQ PACKET PO ONE (10:55)
[2021-03-22] MEDS ORDERED: MAGNESIUM OXIDE 400 MG TABLET PO ONE (10:55)
[2021-03-22] MEDS ORDERED: INSULIN REGULAR, HUMAN 50 UNIT in 0.9 % SODIUM CHLORIDE 99.5 ML IV SCH (11:00)
--- NOTE | 2021-03-22 13:13 | Cat Scan Report ---
CLINICAL INFORMATION: Trauma COMPARISON: None. TECHNIQUE: 2.5 mm helical slices were obtained in the skull base to vertex. Following reconstruction, axial reformatted images were reviewed at bone and parenchymal windows. The exam was performed using radiation dose optimization techniques including, but not limited to, automated exposure control, adjustment of the mA and/or kV according to patient size and use of iterative reconstruction technique. FINDINGS: The ventricles, sulci, fissures, and cisterns are symmetrically enlarged compatible with mild age-related atrophy. No extra-axial fluid collections are identified. Mild patchy chronic ischemic changes, in the deep cerebral white matter, are expected for age. There is a 5 mm remote lacunar infarct in the posterior left deep frontal white matter. There is no hemorrhage, mass effect, or edema. Bone windows show no osseous abnormality. IMPRESSION: Mild atrophy and chronic ischemic changes in the deep cerebral white matter-expected for age. 5 mm remote lacunar infarct deep left frontal white matter. No cerebral hemorrhage or other acute finding Interpreted and Authenticated by: Rodri Walter 03/22/21
--- NOTE | 2021-03-22 15:28 | Internal Med History&Physical ---
HPI History of Present Illness Patient information: Note initiated : 03/22/21 at 3:15 pm Service Date, if different from initiated Date: [] Patient: Erin Toledo a 61 y/o F admitted on for nausea/vomiting not taking insulin. Chief Complaint: [] History of present illness: Ms. Toledo is a 61 year old F Presents the ED with nausea vomiting. Patient was recently at [place] ED with hypoglycemia. She ended up stopping her insulin altogether and stating she also did not feel well as part of the reason. Diagnosed in the ED with DKA, she also had confusion at the time. She lives alone. No beds available in the hospital or surrounding so patient was treated in the ED. For the next 24 hours for DKA was resolved however she still has some confusion and it was felt that she was unsafe to go home by herself concerned about her being able to take her medications appropriately. Also still quite weak. Per notes from my discussion with her daughter it sounds like she has had some confusion for a while. CT of the brain in the ED H show chronic ischemic changes and an old infarct left frontal. Patient complains of nausea vomiting some diarrhea. Complains of some abdominal pain from the vomiting. She has had some cough for few weeks and some shortness of breath. She is oxygenating well on room air in the ED. She denies fevers or chills and is afebrile and vital signs in the ED. Review of Systems: Pertinent positives as above denies headache/fever/chills/chest pain. Remaining 10 point review of system reviewed negative PFSH PFSH All Active Problems (Updated 03/22/21 @ 11:59 by Luis Eduardo Ray DO) Vomiting (Acute) Acute hyperglycemia (Acute) Myofascial pain (Acute) Metabolic syndrome (Chronic) Cervical spondylosis with radiculopathy (Chronic) Low back pain (Chronic) Lumbar stenosis with neurogenic claudication (Chronic) History of vaginal surgery (Chronic) History of elbow surgery (Chronic) History of right knee joint replacement (Chronic) History of surgery (Chronic) History of esophagogastroduodenoscopy (EGD) (Chronic) History of bunionectomy (Chronic) History of femur fracture (Chronic) History of hernia repair (Chronic) History of carpal tunnel release of both wrists (Chronic) History of total left knee replacement (Chronic) History of tonsillectomy (Chronic) History of thyroidectomy (Chronic) History of hysterectomy (Chronic) Arthropathy of cervical facet joint (Chronic) Diabetes mellitus with hyperosmolarity (Chronic) Hypertension (Chronic) Obesity (Chronic) COPD (chronic obstructive pulmonary disease) (Chronic) Depression (Chronic) GERD (gastroesophageal reflux disease) (Chronic) Anxiety disorder (Chronic) Hypothyroidism (Chronic) Osteoarthritis (Chronic) Peripheral neuropathy (Chronic) Peripheral edema (Chronic) Radiculopathy, lumbar region (Chronic) Chronic pain (Chronic) Disc displacement, lumbar (Chronic) Radiculopathy, cervical region (Chronic) Medical History Anxiety disorder Arthropathy of cervical facet joint Cervical spondylosis with radiculopathy Chronic pain COPD (chronic obstructive pulmonary disease) Depression Diabetes mellitus with hyperosmolarity Disc displacement, lumbar GERD (gastroesophageal reflux disease) History of femur fracture Hypertension Hypothyroidism Low back pain Lumbar stenosis with neurogenic claudication Metabolic syndrome Obesity Osteoarthritis Peripheral edema Peripheral neuropathy Radiculopathy, cervical region Radiculopathy, lumbar region Surgical History History of bunionectomy right tailors with v osteotomy History of carpal tunnel release of both wrists History of elbow surgery History of esophagogastroduodenoscopy (EGD) History of hernia repair History of hysterectomy History of right knee joint replacement History of surgery KEYUR #2 w/cath, w/sed 06/30/2019 KEYUR #1 w/cath, w/sed 06/13/19 TF MARGUERITE #3 Lt L4-5 w/sed 04/06/19 TF MARGUERITE #2 Lt. L4-5 w/sed 11/10/18 TF MARGUERITE #1 Lt L4-5 w/sed 10/27/18 History of surgery toenail removal, removal of left 2nd toe History of thyroidectomy History of tonsillectomy History of total left knee replacement History of vaginal surgery Family History Mother Hypertension Arthritis Father Hypertension Heart disease Alcohol abuse Diabetes Family/Other Diabetes Social History (Updated 01/25/20 @ 09:08 by Nini Avila) marital status: single education level: high school occupational status: disabled alcohol intake frequency: does not drink substance use type: does not use MEDS/ALLERGIES Home Medications and Allergies Home Medications Medication Instructions Recorded Confirmed Type aripiprazole 5 mg tablet 5 mg PO DAILY 06/27/18 03/21/21 History atorvastatin 40 mg tablet 40 mg PO HS 06/27/18 03/21/21 History brimonidine 0.2 %-timolol 0.5 % 1 drp BOTH EYES Q12H 06/27/18 01/22/21 History eye drops furosemide 20 mg tablet 20 mg PO PRN PRN 06/27/18 01/22/21 History gabapentin 800 mg tablet 800 mg PO TID 06/27/18 03/21/21 History glucagon (human recombinant) 1 mg 1 mg IJ PRN PRN 06/27/18 03/21/21 History solution for injection insulin aspart U-100 100 unit/mL 100 unit SQ DAILY 06/27/18 03/21/21 History (3 mL) subcutaneous pen insulin glargine 100 unit/mL (3 100 unit SQ DAILY 06/27/18 03/21/21 History mL) subcutaneous pen levothyroxine 137 mcg tablet 125 mcg PO DAILY 06/27/18 03/21/21 History lisinopril 20 mg tablet 20 mg PO DAILY 06/27/18 01/22/21 History morphine 100 mg capsule,extended 100 mg PO TID 06/27/18 03/21/21 History release pellets omeprazole 20 mg capsule,delayed 20 mg PO ACB 06/27/18 01/22/21 History release promethazine 25 mg tablet 25 mg PO PRN PRN 06/27/18 01/22/21 History sertraline 100 mg tablet 100 mg PO DAILY 06/27/18 01/22/21 History Allergies Allergy/AdvReac Type Severity Reaction Status Date / Time oxycodone AdvReac Mild Nausea Verified 01/24/20 14:19 EXAM Constitutional Vitals: Temp Pulse Resp BP Pulse Ox 97.0 F 77 18 140/53 94 03/21/21 19:19 03/22/21 14:01 03/22/21 14:01 03/22/21 14:01 03/22/21 14:01 Exam: General: Appears weak, no acute Distress, obese Eyes/N/T: EOMI, PERRL, dry MM Head/Neck: neck supple no nuchal rigidity, normocephalic atraumatic CV: RRR, No murmurs, normal s1/s2 Pulm: Clear b/l, no wheezing/rhonchi/rales Abd: soft, nontender, +BS x4 Ext: no cyanosis but clubbing noted, chronic edeme evident currently trace b/l LE edema Neuro: Mildly lethargic, no focal deficits, moves all extremities, CN 2-12 grossly intact, symmetrical strength b/l upper/lower, sensations intact b/l upper/lower Skin: warm/dry DATA Data Completed and Pending Labs: Labs from last 24 hours 03/22/21 03/22/21 03/22/21 09:09 06:45 03:33 WBC RBC Hgb Hct POC Hct 33 L MCV MCH MCHC RDW Plt Count MPV Neut % (Auto) Lymph % (Auto) [place] % (Auto) Eos % (Auto) Baso % (Auto) Lymph # (Auto) [place] # (Auto) Eos # (Auto) Baso # (Auto) Absolute Neutrophils ABG Methemoglobin 0.3 L VBG pH 7.46 H VBG pCO2 29.9 L VBG pO2 78.6 H VBG HCO3 20.5 L VBG Total CO2 21.5 L VBG O2 Saturation 91.5 H VBG Base Excess -3 L VBG Lactic Acid Carboxyhemoglobin 3.7 H Total Hemoglobin 10.1 L POC Sodium 136 Sodium 133 POC Potassium 3.4 Potassium 3.2 L POC Chloride 99 Chloride 99 Carbon Dioxide 22 POC Total CO2 21 L Anion Gap 12.0 POC BUN 25 H BUN 23 H Creatinine 0.9 POC Creatinine 0.8 GFR Calculation 69 Glucose 125 H POC Glucose 232 H Uric Acid Calcium 7.8 L POC WB Ioniz Calcium 1.06 L Phosphorus Magnesium Total Bilirubin Direct Bilirubin GGT AST ALT Alkaline Phosphatase Lactate Dehydrogenase Troponin T NT-Pro-B Natriuret Pep Total Protein Albumin Globulin Albumin/Globulin Ratio Triglycerides Lipase Beta-Hydroxybutyrate TSH Ethyl Alcohol 03/22/21 03/21/21 03/21/21 01:06 20:13 20:13 WBC RBC Hgb Hct POC Hct MCV MCH MCHC RDW Plt Count MPV Neut % (Auto) Lymph % (Auto) [place] % (Auto) Eos % (Auto) Baso % (Auto) Lymph # (Auto) [place] # (Auto) Eos # (Auto) Baso # (Auto) Absolute Neutrophils ABG Methemoglobin 0.1 L VBG pH 7.40 VBG pCO2 27.3 L VBG pO2 48.6 H VBG HCO3 16.5 L VBG Total CO2 17.3 L VBG O2 Saturation 75.7 H VBG Base Excess -7 L VBG Lactic Acid Carboxyhemoglobin 4.6 H Total Hemoglobin 12.4 POC Sodium Sodium TNP POC Potassium Potassium TNP POC Chloride Chloride TNP Carbon Dioxide TNP POC Total CO2 Anion Gap TNP POC BUN BUN TNP Creatinine TNP POC Creatinine GFR Calculation TNP Glucose TNP POC Glucose Uric Acid Calcium TNP POC WB Ioniz Calcium Phosphorus Magnesium Total Bilirubin Direct Bilirubin GGT AST ALT Alkaline Phosphatase Lactate Dehydrogenase Troponin T < 0.01 NT-Pro-B Natriuret Pep Total Protein Albumin Globulin Albumin/Globulin Ratio Triglycerides Lipase Beta-Hydroxybutyrate TSH Ethyl Alcohol 03/21/21 03/21/21 03/21/21 20:13 20:13 20:12 WBC RBC Hgb Hct POC Hct MCV MCH MCHC RDW Plt Count MPV Neut % (Auto) Lymph % (Auto) [place] % (Auto) Eos % (Auto) Baso % (Auto) Lymph # (Auto) [place] # (Auto) Eos # (Auto) Baso # (Auto) Absolute Neutrophils ABG Methemoglobin VBG pH VBG pCO2 VBG pO2 VBG HCO3 VBG Total CO2 VBG O2 Saturation VBG Base Excess VBG Lactic Acid 4.6 H* Carboxyhemoglobin Total Hemoglobin POC Sodium Sodium 134 POC Potassium Potassium 3.5 POC Chloride Chloride 83 L Carbon Dioxide 13 L POC Total CO2 Anion Gap 38.0 H POC BUN BUN 27 H Creatinine 1.0 POC Creatinine GFR Calculation 61 Glucose 641 H* POC Glucose Uric Acid Calcium 8.7 POC WB Ioniz Calcium Phosphorus Magnesium 1.9 Total Bilirubin 1.0 Direct Bilirubin GGT AST 14 ALT 12 Alkaline Phosphatase 106 Lactate Dehydrogenase Troponin T NT-Pro-B Natriuret Pep 2072.0 H Total Protein 7.0 Albumin 4.0 Globulin 3.0 Albumin/Globulin Ratio 1.3 Triglycerides Lipase 17 Beta-Hydroxybutyrate TSH 1.98 Ethyl Alcohol 03/21/21 03/21/21 03/21/21 20:12 20:12 20:12 WBC 11.8 H RBC 4.21 Hgb 12.7 Hct 38.8 POC Hct MCV 92.2 MCH 30.2 MCHC 32.7 RDW 15.2 H Plt Count 321 MPV 10.7 H Neut % (Auto) 88.4 H Lymph % (Auto) 5.7 L [place] % (Auto) 5.6 Eos % (Auto) 0.1 Baso % (Auto) 0.2 Lymph # (Auto) 0.67 L [place] # (Auto) 0.66 Eos # (Auto) 0.01 Baso # (Auto) 0.02 Absolute Neutrophils 10.45 H ABG Methemoglobin VBG pH VBG pCO2 VBG pO2 VBG HCO3 VBG Total CO2 VBG O2 Saturation VBG Base Excess VBG Lactic Acid Carboxyhemoglobin Total Hemoglobin POC Sodium Sodium POC Potassium Potassium POC Chloride Chloride Carbon Dioxide POC Total CO2 Anion Gap POC BUN BUN Creatinine POC Creatinine GFR Calculation Glucose POC Glucose Uric Acid Calcium POC WB Ioniz Calcium Phosphorus Magnesium Total Bilirubin Direct Bilirubin GGT AST ALT Alkaline Phosphatase Lactate Dehydrogenase Troponin T NT-Pro-B Natriuret Pep Total Protein Albumin Globulin Albumin/Globulin Ratio Triglycerides Lipase Beta-Hydroxybutyrate 6.47 H TSH Ethyl Alcohol < 0.010 03/21/21 03/21/21 03/21/21 01:06 01:06 01:06 WBC RBC Hgb Hct POC Hct MCV MCH MCHC RDW Plt Count MPV Neut % (Auto) Lymph % (Auto) [place] % (Auto) Eos % (Auto) Baso % (Auto) Lymph # (Auto) [place] # (Auto) Eos # (Auto) Baso # (Auto) Absolute Neutrophils ABG Methemoglobin 0.3 L VBG pH 7.40 VBG pCO2 25.1 L VBG pO2 142.3 H VBG HCO3 15.2 L VBG Total CO2 15.9 L VBG O2 Saturation 93.7 H VBG Base Excess -8 L VBG Lactic Acid Carboxyhemoglobin 4.8 H Total Hemoglobin 10.2 L POC Sodium Sodium 131 L POC Potassium Potassium 3.1 L POC Chloride Chloride 92 L Carbon Dioxide 14 L POC Total CO2 Anion Gap 25.0 H POC BUN BUN 29 H Creatinine 1.1 POC Creatinine GFR Calculation 55 Glucose 507 H* POC Glucose Uric Acid 7.8 Calcium 7.3 L POC WB Ioniz Calcium Phosphorus 3.0 Magnesium TNP 1.7 Total Bilirubin 0.6 Direct Bilirubin 0.2 GGT 14 AST 13 ALT 11 Alkaline Phosphatase 85 Lactate Dehydrogenase 241 H Troponin T NT-Pro-B Natriuret Pep Total Protein 5.8 L Albumin 3.2 Globulin 2.6 Albumin/Globulin Ratio 1.2 Triglycerides 136 Lipase Beta-Hydroxybutyrate TSH Ethyl Alcohol 03/21/21 01:06 WBC RBC Hgb Hct POC Hct MCV MCH MCHC RDW Plt Count MPV Neut % (Auto) Lymph % (Auto) [place] % (Auto) Eos % (Auto) Baso % (Auto) Lymph # (Auto) [place] # (Auto) Eos # (Auto) Baso # (Auto) Absolute Neutrophils ABG Methemoglobin VBG pH VBG pCO2 VBG pO2 VBG HCO3 VBG Total CO2 VBG O2 Saturation VBG Base Excess VBG Lactic Acid 2.2 H Carboxyhemoglobin Total Hemoglobin POC Sodium Sodium POC Potassium Potassium POC Chloride Chloride Carbon Dioxide POC Total CO2 Anion Gap POC BUN BUN Creatinine POC Creatinine GFR Calculation Glucose POC Glucose Uric Acid Calcium POC WB Ioniz Calcium Phosphorus Magnesium Total Bilirubin Direct Bilirubin GGT AST ALT Alkaline Phosphatase Lactate Dehydrogenase Troponin T NT-Pro-B Natriuret Pep Total Protein Albumin Globulin Albumin/Globulin Ratio Triglycerides Lipase Beta-Hydroxybutyrate TSH Ethyl Alcohol A/P Narrative A/P Narrative: A: *Generalized weakness/deconditioning: *DKA (DM w/neuropathy): Resolved -A1c -has had recent episodes of hypoglycemia, then stopped taking insulin altogether *lactic acidosis: resolved *Volume depletion: *Encephalopathy: 2/2 above -CT with chronic ischemic changes, mild atrophy, old lacunar infarct left frontal -tsh wnl *h/o CVA per imaging: *Hypothyroidism: *Tobacco abuse: *Depression/anxiety *GERD: *Obese: *Chronic pain: Follows with pain clinic *COPD by imaging and smoking history: P: -s/p IVF -basal and SSI -monitor electrolytes -a1c -check UA -cont home statin, start ASA -hold home lasix for now - -pt/ot -CM for placement -f/u with pulm for PFT's -ppx: lovenox / home ppi Time Spent With Patient Time: Total time spent is greater than 50% in coordination of care (as documented) at patient's floor/unit and/or counseling patient:
[2021-03-22 16:28] LABS: Appearance,Urine Cloudy (Clear); Bilirubin,Urine Negative (Negative); Color,Urine Light yellow; Culture Indicated,Urine No; Glucose,Urine (UA) >=1000 mg/dL mg/dL (Negative); Ketones,Urine 40 mg/dL mg/dL (Negative); Leukocyte Esterase,Urine Negative /uL (Negative); Nitrate,Urine Negative (Negative); PH,Urine 5.5 (5.0-9.0); Protein,Urine Negative (Negative); Specific Gravity,Urine 1.015 (1.000-1.035); Urine Blood Negative ery/mcL (Negative); Urine RBC 2 /hpf (0-3); Urine Squamous Epithelial Cell 1 /hpf (0-4); Urine WBC 4 /hpf (0-4); Urobilinogen,Urine Normal
[2021-03-22] MEDS ORDERED: IPRATROPIUM/ALBUTEROL 3 ML AMPUL.NEB NEB PRN (16:57)
[2021-03-22] MEDS ORDERED: ONDANSETRON 4 MG/2 ML VIAL IV PRN (16:57)
[2021-03-22] MEDS ORDERED: DEXTROSE 50% 50 ML VIAL IV PRN (16:57)
[2021-03-22] MEDS ORDERED: POTASSIUM CHLORIDE 40 MEQ in DEXTROSE 5% IN WATER 500 ML IV PRN (16:57)
[2021-03-22] MEDS ORDERED: ACETAMINOPHEN 325 MG TABLET PO PRN (16:57)
[2021-03-22] MEDS ORDERED: POTASSIUM CHLORIDE 20 MEQ TABLET PO PRN (16:57)
[2021-03-22] MEDS ORDERED: METOCLOPRAMIDE 10 MG/2 ML VIAL IV PRN (16:57)
[2021-03-22] MEDS ORDERED: MAGNESIUM SULFATE 2 GM/50 ML BAG IV PRN (16:57)
[2021-03-22] MEDS ORDERED: DEXTROSE 31 GM ORAL.SUSP PO PRN (16:57)
[2021-03-22] MEDS ORDERED: POLYETHYLENE GLYCOL 3350 17 GM PACKET PO PRN (16:57)
[2021-03-22 18:09] LABS: Hemoglobin A1C 8.3 % Hgb (4.0-6.0)
[2021-03-22] MEDS: morphine 2 MG/ML VIAL IV PRN (19:08)
[2021-03-22] MEDS: INSULIN LISPRO 1 UNIT/0.01 ML UNIT SQ SCH (20:29)
[2021-03-22] MEDS: GABAPENTIN 400 MG CAPSULE PO SCH (20:35)
[2021-03-22] MEDS: ENOXAPARIN 40 MG/0.4 ML SYRINGE SQ SCH (20:35)
[2021-03-22] MEDS: ATORVASTATIN 40 MG TABLET PO SCH (20:35)
[2021-03-22] MEDS: 0.9 % SODIUM CHLORIDE 10 ML SYRINGE IV SCH (23:31)
[2021-03-23] MEDS: morphine 2 MG/ML VIAL IV PRN ×2 (03:00→08:31)
[2021-03-23] MEDS: INSULIN LISPRO 1 UNIT/0.01 ML UNIT SQ SCH ×5 (06:12→20:57)
[2021-03-23] MEDS: 0.9 % SODIUM CHLORIDE 10 ML SYRINGE IV SCH ×3 (07:14→20:38)
[2021-03-23] MEDS: LEVOTHYROXINE 125 MCG TABLET PO SCH (07:17)
[2021-03-23] MEDS ORDERED: LEVOTHYROXINE 125 MCG TABLET PO SCH (07:30)
[2021-03-23 07:57] LABS: Basophils # (Auto) 0.04 K/mcL (0.00-0.30); Basophils % (Auto) 0.4 % (0.0-2.0); Eosinophils # (Auto) 0.02 K/mcL (0.00-0.70); Eosinophils % (Auto) 0.2 % (0.0-7.0); Hematocrit 33.7 % (34.1-44.9); Hemoglobin 11.4 g/dL (11.2-15.7); Lymphocytes % (Auto) 20.3 % (15.5-49.0); Mean Cell Volume 89.9 fL (80.0-100.0); Mean Corpuscular HGB Conc 33.8 g/dL (31.0-36.0); Mean Platelet Volume 10.3 fL (7.4-10.4); Monocytes # (Auto) 0.64 K/mcL (0.10-0.90); Monocytes % (Auto) 6.8 % (1.0-12.0); Neutrophils % (Auto) 72.3 % (38.0-78.0); Platelet Count 292 K/mcL (140-440); RBC 3.75 M/mcL (3.59-5.38); Red Cell Distribution Width 15.1 % (11.5-14.5); WBC 9.4 K/mcL (4.5-11.0)
[2021-03-23] MEDS: GABAPENTIN 400 MG CAPSULE PO SCH ×3 (08:24→20:37)
[2021-03-23] MEDS: ARIPIPRAZOLE 5 MG TABLET PO SCH (08:24)
[2021-03-23] MEDS: POTASSIUM CHLORIDE 20 MEQ TABLET PO PRN (08:25)
[2021-03-23] MEDS: INSULIN GLARGINE, HUMAN 1 UNIT/0.01 ML SQ SCH (08:25)
[2021-03-23] MEDS: ENOXAPARIN 40 MG/0.4 ML SYRINGE SQ SCH (08:25)
[2021-03-23 08:36] LABS: ALT/SGPT 10 U/L (<40); AST/SGOT 16 U/L (<32); Albumin 3.5 gm/dL (3.2-5.2); Albumin/Globulin Ratio 1.5 (1.0-2.3); Alkaline Phosphatase 89 U/L (39-117); Bilirubin,Direct 0.4 mg/dL (<0.3); Bilirubin,Total 1.1 mg/dL (0.1-1.0); Blood Urea Nitrogen 13 mg/dL (6-20); Carbon Dioxide 24 mmol/L (22-30); Chloride 102 mmol/L (96-108); Globulin 2.4 gm/dL (2.2-3.7); Glomerular Filtration Rate 94; Glucose 77 mg/dL (70-105); Lactate Dehydrogenase 274 U/L (135-225); Phosphorous 1.4 mg/dL (2.5-4.5); Triglycerides 93 mg/dL (<150); Uric Acid 4.3 mg/dL (2.5-8.0)
--- NOTE | 2021-03-23 08:38 | Internal Med Progress Note ---
SUBJECTIVE Subjective Patient information: Note initiated : 03/23/21 at 8:34 am Service Date, if different from initiated Date: [] Patient: Erin Toledo a 61 y/o F admitted on 03/22/21 for nausea/vomiting not taking insulin. Chief Complaint: [] Interval history: History of present illness: Ms. Toledo is a 61 year old F Presents the ED with nausea vomiting. Patient was recently at [place] [facility] with hypoglycemia. She ended up stopping her insulin altogether and stating she also did not feel well as part of the reason. Diagnosed in the ED with DKA, she also had confusion at the time. She lives alone. No beds available in the hospital or surrounding so patient was treated in the ED. For the next 24 hours for DKA was resolved however she still has some confusion and it was felt that she was unsafe to go home by herself concerned about her being able to take her medications appropriately. Also still quite weak. Per notes from my discussion with her daughter it sounds like she has had some confusion for a while. CT of the brain in the ED H show chronic ischemic changes and an old infarct left frontal. Patient complains of nausea vomiting some diarrhea. Complains of some abdominal pain from the vomiting. She has had some cough for few weeks and some shortness of breath. She is oxygenating well on room air in the ED. She denies fevers or chills and is afebrile and vital signs in the ED. 2/6 Patient feeling better today. Alert and oriented. Wants to go home with possible home health instead of SNF. Told he would have physical therapy work with your and talk with case management. Review of Systems: denies headache/fever/chills//vomiting/chest or abdominal pain/cough/dyspnea. Otherwise see above. Constitutional Vitals: Vital Signs Temp Pulse Resp BP Pulse Ox 98.6 F 71 16 142/65 95 03/23/21 07:20 03/23/21 07:20 03/23/21 07:20 03/23/21 07:20 03/23/21 07:20 Period Temp Pulse Resp BP Sys/Loya Pulse Ox Last 24 Hr 97.1 F-99.1 F 67-81 13-25 114-155/44-74 90-100 Intake and Output 03/22/21 03/23/21 03/23/21 21:59 05:59 13:59 Intake Total 420 800 Output Total 1000 Balance -580 800 Weight 79.061 kg Intake & Output: Intake & Output 03/22/21 03/23/21 03/23/21 21:59 05:59 13:59 Intake Total 420 800 Output Total 1000 Balance -580 800 Weight 79.061 kg Intake: Oral 420 800 Output: Urine Catheter Amount 1000 Other: Urine Appearance Cloudy Clear Sediment Uretheral ([place]) Cloudy Clear Sediment Urine Color Dark Yellow Dark Yellow Uretheral ([place]) Dark Yellow Dark Yellow Urine Odor Uretheral ([place]) Normal Exam: General: Appears weak, no acute Distress, obese Eyes/N/T: EOMI, Head/Neck: neck supple CV: RRR, No murmurs, Pulm: Clear b/l, no wheezing/rhonchi/rales Abd: soft, nontender, +BS x4 Ext: no cyanosis but clubbing noted, chronic edeme evident currently trace b/l LE edema Neuro: Mildly lethargic, no focal deficits, moves all extremities, Skin: warm/dry OBJ DATA Labs CBC & Chem 7: 03/23/21 05:42 03/23/21 05:42 Labs: Abnormal Lab Results 03/23/21 03/22/21 03/22/21 05:42 10:25 09:09 WBC Hct 33.7 L POC Hct RDW 15.1 H MPV Neut % (Auto) Lymph % (Auto) Lymph # (Auto) Absolute Neutrophils ABG Methemoglobin VBG pH VBG pCO2 VBG pO2 VBG HCO3 VBG Total CO2 VBG O2 Saturation VBG Base Excess VBG Lactic Acid Carboxyhemoglobin Total Hemoglobin Sodium Potassium 3.2 L Chloride Carbon Dioxide POC Total CO2 Anion Gap POC BUN BUN 23 H Glucose 125 H POC Glucose Hemoglobin A1c Calcium 7.8 L POC WB Ioniz Calcium Lactate Dehydrogenase NT-Pro-B Natriuret Pep Total Protein Beta-Hydroxybutyrate Urine Appearance Cloudy A Urine Glucose (UA) >=1000 mg/dl A Urine Ketones 40 mg/dl A 03/22/21 03/22/21 03/22/21 09:04 06:45 03:33 WBC Hct POC Hct 33 L RDW MPV Neut % (Auto) Lymph % (Auto) Lymph # (Auto) Absolute Neutrophils ABG Methemoglobin 0.3 L VBG pH 7.46 H VBG pCO2 29.9 L VBG pO2 78.6 H VBG HCO3 20.5 L VBG Total CO2 21.5 L VBG O2 Saturation 91.5 H VBG Base Excess -3 L VBG Lactic Acid Carboxyhemoglobin 3.7 H Total Hemoglobin 10.1 L Sodium Potassium Chloride Carbon Dioxide POC Total CO2 21 L Anion Gap POC BUN 25 H BUN Glucose POC Glucose 232 H Hemoglobin A1c 8.3 H Calcium POC WB Ioniz Calcium 1.06 L Lactate Dehydrogenase NT-Pro-B Natriuret Pep Total Protein Beta-Hydroxybutyrate Urine Appearance Urine Glucose (UA) Urine Ketones 03/21/21 03/21/21 03/21/21 20:13 20:13 20:13 WBC Hct POC Hct RDW MPV Neut % (Auto) Lymph % (Auto) Lymph # (Auto) Absolute Neutrophils ABG Methemoglobin 0.1 L VBG pH VBG pCO2 27.3 L VBG pO2 48.6 H VBG HCO3 16.5 L VBG Total CO2 17.3 L VBG O2 Saturation 75.7 H VBG Base Excess -7 L VBG Lactic Acid 4.6 H* Carboxyhemoglobin 4.6 H Total Hemoglobin Sodium Potassium Chloride 83 L Carbon Dioxide 13 L POC Total CO2 Anion Gap 38.0 H POC BUN BUN 27 H Glucose 641 H* POC Glucose Hemoglobin A1c Calcium POC WB Ioniz Calcium Lactate Dehydrogenase NT-Pro-B Natriuret Pep 2072.0 H Total Protein Beta-Hydroxybutyrate Urine Appearance Urine Glucose (UA) Urine Ketones 03/21/21 03/21/21 03/21/21 20:12 20:12 01:06 WBC 11.8 H Hct POC Hct RDW 15.2 H MPV 10.7 H Neut % (Auto) 88.4 H Lymph % (Auto) 5.7 L Lymph # (Auto) 0.67 L Absolute Neutrophils 10.45 H ABG Methemoglobin 0.3 L VBG pH VBG pCO2 25.1 L VBG pO2 142.3 H VBG HCO3 15.2 L VBG Total CO2 15.9 L VBG O2 Saturation 93.7 H VBG Base Excess -8 L VBG Lactic Acid Carboxyhemoglobin 4.8 H Total Hemoglobin 10.2 L Sodium Potassium Chloride Carbon Dioxide POC Total CO2 Anion Gap POC BUN BUN Glucose POC Glucose Hemoglobin A1c Calcium POC WB Ioniz Calcium Lactate Dehydrogenase NT-Pro-B Natriuret Pep Total Protein Beta-Hydroxybutyrate 6.47 H Urine Appearance Urine Glucose (UA) Urine Ketones 03/21/21 03/21/21 01:06 01:06 WBC Hct POC Hct RDW MPV Neut % (Auto) Lymph % (Auto) Lymph # (Auto) Absolute Neutrophils ABG Methemoglobin VBG pH VBG pCO2 VBG pO2 VBG HCO3 VBG Total CO2 VBG O2 Saturation VBG Base Excess VBG Lactic Acid 2.2 H Carboxyhemoglobin Total Hemoglobin Sodium 131 L Potassium 3.1 L Chloride 92 L Carbon Dioxide 14 L POC Total CO2 Anion Gap 25.0 H POC BUN BUN 29 H Glucose 507 H* POC Glucose Hemoglobin A1c Calcium 7.3 L POC WB Ioniz Calcium Lactate Dehydrogenase 241 H NT-Pro-B Natriuret Pep Total Protein 5.8 L Beta-Hydroxybutyrate Urine Appearance Urine Glucose (UA) Urine Ketones Meds: Medications Acetaminophen (Acetaminophen 325 Mg Tablet) 650 mg PO Q6HP PRN; Protocol PRN Reason: Per Pain Protocol/Fever > 101 Albuterol/Ipratropium (Ipratropium/Albuterol 3 Ml Ampul.Neb) 3 ml NEB Q4HP PRN PRN Reason: Shortness Of Breath Atorvastatin Calcium (Atorvastatin 40 Mg Tablet) 40 mg PO HS ON LICENSE OF [facility] Last Admin: 03/22/21 20:35 Dose: 40 mg Documented by: Dextrose (Dextrose 50% 50 Ml Vial) 0 ml IV UD PRN PRN Reason: Hypoglycemia Diagnostic Test (Pha) (Accu-Chek 1 Each Strip) 1 each FS ACHS ON LICENSE OF [facility] Last Admin: 03/23/21 07:14 Dose: 1 each Documented by: Enoxaparin Sodium (Enoxaparin 40 Mg/0.4 Ml Syringe) 40 mg SQ DAILY ON LICENSE OF [facility] Last Admin: 03/23/21 08:25 Dose: 40 mg Documented by: Gabapentin (Gabapentin 400 Mg Capsule) 800 mg PO TID ON LICENSE OF [facility] Last Admin: 03/23/21 08:24 Dose: 800 mg Documented by: Glucose (Dextrose 31 Gm Oral.Susp) 15 gm PO PRN PRN PRN Reason: Hypoglycemia Potassium Chloride 40 meq/ (Dextrose) 520 mls @ 130 mls/hr IV UD PRN PRN Reason: Potassium < 3 Magnesium Sulfate (Magnesium Sulfate) 2 gm in 50 mls @ 50 mls/hr IV UD PRN PRN Reason: Magnesium </= 1.6 Insulin Glargine (Insulin Glargine, Human 1 Unit/0.01 Ml) 15 unit SQ DAILY ON LICENSE OF [facility] Last Admin: 03/23/21 08:25 Dose: 15 units Documented by: Insulin Human Lispro (Insulin Lispro 1 Unit/0.01 Ml Unit) 0 unit SQ ACHS ON LICENSE OF [facility]; Protocol Last Admin: 03/23/21 07:14 Dose: Not Given Documented by: Levothyroxine Sodium (Levothyroxine 125 Mcg Tablet) 125 mcg PO QAMAC ON LICENSE OF [facility] Last Admin: 03/23/21 07:17 Dose: 125 mcg Documented by: Metoclopramide HCl (Metoclopramide 10 Mg/2 Ml Vial) 10 mg IV Q6HP PRN PRN Reason: Nausea And Vomiting Morphine Sulfate (Morphine 2 Mg/Ml Vial) 1 - 4 mg IV Q6HP PRN; Protocol PRN Reason: Per Pain Protocol Last Admin: 03/23/21 08:31 Dose: 4 mg Documented by: Nicotine (Nicotine 21 Mg Patch) 21 mg TOPICAL DAILY@1000 ON LICENSE OF [facility] Ondansetron HCl (Ondansetron 4 Mg/2 Ml Vial) 4 mg IV Q4HP PRN PRN Reason: Nausea And Vomiting Polyethylene Glycol (Polyethylene Glycol 3350 17 Gm Packet) 17 gm PO DAILYP PRN PRN Reason: Constipation Potassium Chloride (Potassium Chloride 20 Meq Tablet) 40 meq PO UD PRN PRN Reason: Potssium is 3-3.5 Potassium Chloride (Potassium Chloride 20 Meq Tablet) 40 meq PO UD PRN PRN Reason: Potassium < 3 Sodium Chloride (0.9 % Sodium Chloride 10 Ml Syringe) 10 ml IV Q8 ON LICENSE OF [facility] Last Admin: 03/23/21 07:14 Dose: 10 ml Documented by: ABG Interpretation ABG results: 03/21/21 03/21/21 03/22/21 01:06 20:13 03:33 ABG Methemoglobin 0.3 L 0.1 L 0.3 L VBG pH 7.40 7.40 7.46 H VBG pCO2 25.1 L 27.3 L 29.9 L VBG pO2 142.3 H 48.6 H 78.6 H VBG HCO3 15.2 L 16.5 L 20.5 L VBG Total CO2 15.9 L 17.3 L 21.5 L VBG O2 Saturation 93.7 H 75.7 H 91.5 H VBG Base Excess -8 L -7 L -3 L A/P Narrative A/P Narrative: A: *Generalized weakness/deconditioning: *DKA (DM w/neuropathy): Resolved -A1c 8.3 -has had recent episodes of hypoglycemia, then stopped taking insulin altogether *lactic acidosis: resolved *Volume depletion: improved *Encephalopathy: 2/2 above -CT with chronic ischemic changes, mild atrophy, old lacunar infarct left frontal -tsh wnl *h/o CVA per imaging: *Hypothyroidism: *Tobacco abuse: *Depression/anxiety *GERD: *Obese: *Chronic pain: Follows with pain clinic *COPD by imaging and smoking history: *Hypophosphatemia: Replete P: -s/p IVF -basal (start at 15u) and SSI -monitor electrolytes -cont home statin, start ASA -hold home lasix for now -pt/ot -CM for placement -f/u with pulm for PFT's, prescribe albuterol inhaler -ppx: lovenox / home ppi Time Spent With Patient Time: Total time spent is greater than 50% in coordination of care (as documented) at patient's floor/unit and/or counseling patient: QUALITY Stroke Symptom Onset Unknown: No VTE Deep Vein Thrombosis/Pulmonary Embolism Present on Admission: No
[2021-03-23] MEDS ORDERED: INSULIN SQ SCH (09:00)
[2021-03-23] MEDS ORDERED: INSULIN ASPART U SQ SCH (09:00)
[2021-03-23] MEDS: PHOSPHORUS 250 MG TABLET PO SCH ×3 (09:02→20:36)
[2021-03-23] MEDS: NEUTRA PHOS 1 PACKET PO SCH ×2 (09:02→20:38)
[2021-03-23] MEDS: NICOTINE 21 MG PATCH TOPICAL SCH ×2 (09:04→20:36)
[2021-03-23] MEDS: ASPIRIN 81 MG TAB.CHEW CHEWED SCH (10:31)
[2021-03-23] MEDS: morphine 30 MG TAB.SR.12H PO SCH ×3 (10:32→20:36)
--- NOTE | 2021-03-23 11:36 | Discharge Summary ---
Discharge Provider Provider Patient information: Note initiated : 03/23/21 at 11:34 am Service Date, if different from initiated Date: [] Patient: Erin Toledo 61 y/o F admitted on 03/22/21 for nausea/vomiting not taking insulin. Chief Complaint: [] Date of admission: 03/22/21 16:51 Discharge date: 03/24/21 Primary care physician: Leonor Casillas Consults: 03/22/21 Consult to Physician [CONS] Stat Comment: Consulting Provider: Otoniel Lyons Reason For Exam: Physician to Consult 03/22/21 14:38 Consult to Physician [CONS] Stat Comment: Consulting Provider: Tobin Moreau Reason For Exam: Physician to Consult Discharge Meds Discharge Medications Home Medications aripiprazole 5 mg tablet 5 mg PO DAILY 06/27/18 [History Confirmed 03/21/21 Last Taken 07/01/18] atorvastatin 40 mg tablet 40 mg PO HS 06/27/18 [History Confirmed 03/21/21 Last Taken 06/30/18] brimonidine 0.2 %-timolol 0.5 % eye drops (Combigan) 1 drp BOTH EYES Q12H 06/27/18 [History Confirmed 03/22/21 Last Taken 06/30/18] furosemide 20 mg tablet (Lasix) 20 mg PO PRN PRN 06/27/18 [History Confirmed 03/22/21 Last Taken 06/30/18] gabapentin 800 mg tablet 800 mg PO TID 06/27/18 [History Confirmed 03/21/21 Last Taken 06/30/18] glucagon (human recombinant) 1 mg solution for injection 1 mg IJ PRN PRN 06/27/18 [History Confirmed 03/21/21 Last Taken 06/30/18] insulin aspart U-100 100 unit/mL (3 mL) subcutaneous pen 100 unit SQ DAILY 06/27/18 [History Confirmed 03/21/21 Last Taken 06/30/18] levothyroxine 137 mcg tablet 125 mcg PO DAILY 06/27/18 [History Confirmed 03/21/21 Last Taken 06/30/18] lisinopril 20 mg tablet (Zestril) 20 mg PO DAILY 06/27/18 [History Confirmed 03/22/21 Last Taken 06/30/18] morphine 100 mg capsule,extended release pellets 100 mg PO TID 06/27/18 [History Confirmed 03/21/21 Last Taken 06/30/18] omeprazole 20 mg capsule,delayed release 20 mg PO ACB 06/27/18 [History Confirmed 03/22/21 Last Taken 07/01/18] promethazine 25 mg tablet 25 mg PO PRN PRN 06/27/18 [History Confirmed 03/22/21 Last Taken 06/30/18] sertraline 100 mg tablet 100 mg PO DAILY 06/27/18 [History Confirmed 03/22/21 Last Taken 07/01/18] albuterol sulfate 90 mcg/actuation aerosol inhaler (Ventolin HFA) 2 puff INHALATION Q6H PRN #8.5 g 03/23/21 [Rx Last Taken Unknown] aspirin 81 mg chewable tablet 81 mg PO QDAY #60 tab 03/23/21 [Rx Last Taken Unknown] insulin glargine 100 unit/mL (3 mL) subcutaneous pen 15 unit (0.15 mL) SUBCUT D AILY #3 ml 03/23/21 [Rx Last Taken Unknown] COURSE Hospital Course Hospital course: History of present illness: Ms. Toledo is a 61 year old F Presents the ED with nausea vomiting. Patient was recently at [place] ED with hypoglycemia. She ended up stopping her insulin altogether and stating she also did not feel well as part of the reason. Diagnosed in the ED with DKA, she also had confusion at the time. She lives alone. No beds available in the hospital or surrounding so patient was treated in the ED. For the next 24 hours for DKA was resolved however she still has some confusion and it was felt that she was unsafe to go home by herself concerned about her being able to take her medications appropriately. Also still quite weak. Per notes from my discussion with her daughter it sounds like she has had some confusion for a while. CT of the brain in the ED H show chronic ischemic changes and an old infarct left frontal. Patient complains of nausea vomiting some diarrhea. Complains of some abdominal pain from the vomiting. She has had some cough for few weeks and some shortness of breath. She is oxygenating well on room air in the ED. She denies fevers or chills and is afebrile and vital signs in the ED. 2/6 Patient feeling better today. Alert and oriented. Wants to go home with possible home health instead of SNF. Told he would have physical therapy work with your and talk with case management. 2 Feeling well. Desire to go home. Stable for discharge. A: *Generalized weakness/deconditioning: *DKA (DM w/neuropathy): Resolved -A1c 8.3 -has had recent episodes of hypoglycemia, then stopped taking insulin alt ogether *lactic acidosis: resolved *Volume depletion: improved *Encephalopathy: 2/2 above, resolved *h/o CVA per imaging: *Hypothyroidism: *Tobacco abuse: *Depression/anxiety *GERD: *Obese: *Chronic pain: Follows with pain clinic *COPD by imaging and smoking history: *Hypophosphatemia: Replete P: -basal (start at 15u) and SSI -cont home statin, start ASA -f/u with pulm for PFT's - prescribe albuterol inhaler Discharge diagnosis: DKA generalized weakness deconditioning volume depletion encephalopathy Secondary discharge diagnosis: History of stroke hypothyroidism tobacco abuse depression anxiety obesity chronic pain COPD Time Spent with Patient Time attestation: Total time spent providing and/or coordinating discharge services: Time spent: Greater than 30 minutes EXAM Constitutional Vitals: Temp Pulse Resp BP Pulse Ox 98.4 F 76 18 148/63 96 03/23/21 11:33 03/23/21 11:33 03/23/21 11:33 03/23/21 11:33 03/23/21 11:33 Discharge Data Data Completed and Pending Labs on day of discharge: Labs from last 24 hours 03/23/21 03/23/21 03/22/21 05:42 05:42 10:25 WBC 9.4 RBC 3.75 Hgb 11.4 Hct 33.7 L MCV 89.9 MCH 30.4 MCHC 33.8 RDW 15.1 H Plt Count 292 MPV 10.3 Neut % (Auto) 72.3 Lymph % (Auto) 20.3 [place] % (Auto) 6.8 Eos % (Auto) 0.2 Baso % (Auto) 0.4 Lymph # (Auto) 1.90 [place] # (Auto) 0.64 Eos # (Auto) 0.02 Baso # (Auto) 0.04 Absolute Neutrophils 6.75 Sodium 138 Potassium 3.3 Chloride 102 Carbon Dioxide 24 Anion Gap 12.0 BUN 13 Creatinine 0.7 GFR Calculation 94 Glucose 77 Hemoglobin A1c Estim Average Glucose Uric Acid 4.3 Calcium 8.0 L Phosphorus 1.4 L Magnesium 1.8 Total Bilirubin 1.1 H Direct Bilirubin 0.4 H GGT 11 AST 16 ALT 10 Alkaline Phosphatase 89 Lactate Dehydrogenase 274 H Total Protein 5.9 Albumin 3.5 Globulin 2.4 Albumin/Globulin Ratio 1.5 Triglycerides 93 Urine Color Light yellow Urine Appearance Cloudy A Urine pH 5.5 Ur Specific [employer] [place] 1.015 Urine Protein Negative Urine Glucose (UA) >=1000 mg/dl A Urine Ketones 40 mg/dl A Urine Occult Blood Negative Urine Nitrate Negative Urine Bilirubin Negative Urine Urobilinogen Normal Ur Leukocyte Esterase Negative Urine RBC 2 Urine WBC 4 Ur Squamous Epith Cells 1 Urine Bacteria None Ur Culture Indicated? No 03/22/21 09:04 WBC RBC Hgb Hct MCV MCH MCHC RDW Plt Count MPV Neut % (Auto) Lymph % (Auto) [place] % (Auto) Eos % (Auto) Baso % (Auto) Lymph # (Auto) [place] # (Auto) Eos # (Auto) Baso # (Auto) Absolute Neutrophils Sodium Potassium Chloride Carbon Dioxide Anion Gap BUN Creatinine GFR Calculation Glucose Hemoglobin A1c 8.3 H Estim Average Glucose 192 Uric Acid Calcium Phosphorus Magnesium Total Bilirubin Direct Bilirubin GGT AST ALT Alkaline Phosphatase Lactate Dehydrogenase Total Protein Albumin Globulin Albumin/Globulin Ratio Triglycerides Urine Color Urine Appearance Urine pH Ur Specific [employer] [place] Urine Protein Urine Glucose (UA) Urine Ketones Urine Occult Blood Urine Nitrate Urine Bilirubin Urine Urobilinogen Ur Leukocyte Esterase Urine RBC Urine WBC Ur Squamous Epith Cells Urine Bacteria Ur Culture Indicated? Discharge Plan Patient/Caregiver Discharge Instructions Activity: increase activity as tolerated Diet: Consistent Carbohydrate Activity Restrictions/Additional Instructions: Referral to see accounting manager controller in 1 to 2 weeks for pulmonary function test COPD evaluation. Prescriptions: New aspirin 81 mg tablet,chewable 81 mg PO QDAY Qty: 60 0RF albuterol sulfate [Ventolin HFA] 90 mcg/actuation HFA aerosol inhaler 2 puff inhalation Q6H PRN (Reason: shortness of breath or wheezing) Qty: 8.5 0RF Continued atorvastatin 40 MG tablet 40 mg PO HS 0RF levothyroxine 137 MCG tablet 125 mcg PO DAILY 0RF lisinopril [Zestril] 20 MG tablet 20 mg PO DAILY 0RF Label Comments: currently not taking sertraline 100 MG tablet 100 mg PO DAILY 0RF gabapentin 800 MG tablet 800 mg PO TID 0RF promethazine 25 MG tablet 25 mg PO PRN PRN (Reason: Nausea) 0RF glucagon (human recombinant) 1 MG recon soln 1 mg IJ PRN PRN (Reason: Hypoglycemia) 0RF omeprazole 20 MG capsule 20 mg PO ACB 0RF furosemide [Lasix] 20 MG tablet 20 mg PO PRN PRN (Reason: Edema) 0RF insulin aspart U-100 100 UNIT/ML insulin pen 100 unit SQ DAILY 0RF aripiprazole 5 MG tablet 5 mg PO DAILY 0RF morphine 100 MG capsule,extend.release pellets 100 mg PO TID 0RF brimonidine-timolol [Combigan] 5 ML drops 1 drp BOTH EYES Q12H 0RF Changed insulin glargine 100 UNIT/ML insulin pen 15 unit subcut DAILY Qty: 3 0RF Follow Up Plan Follow up with: Leonor Casillas MD [Primary Care Provider] - Patient Disposition: Home Health Service Prognosis: Fair Overall status at discharge: patient is progressing back to baseline Discharge Orders: Discharge Order (Routine); Ordered 03/24/21 Ordered By: Otoniel Lyons COUNTS INCLUDE 234 BEDS AT [facility] VTE Deep Vein Thrombosis/Pulmonary Embolism Present on Admission: No
[2021-03-23] MEDS: ATORVASTATIN 40 MG TABLET PO SCH (20:36)
[2021-03-24] MEDS: POTASSIUM CHLORIDE 20 MEQ TABLET PO PRN (01:40)
[2021-03-24] MEDS: 0.9 % SODIUM CHLORIDE 10 ML SYRINGE IV SCH (05:30)
[2021-03-24] MEDS: INSULIN LISPRO 1 UNIT/0.01 ML UNIT SQ SCH ×2 (07:37→11:30)
[2021-03-24] MEDS: LEVOTHYROXINE 125 MCG TABLET PO SCH (07:37)
[2021-03-24] MEDS: ASPIRIN 81 MG TAB.CHEW CHEWED SCH (08:34)
[2021-03-24] MEDS: GABAPENTIN 400 MG CAPSULE PO SCH (08:34)
[2021-03-24] MEDS: morphine 30 MG TAB.SR.12H PO SCH (08:34)
[2021-03-24] MEDS: ARIPIPRAZOLE 5 MG TABLET PO SCH (08:34)
[2021-03-24] MEDS: ENOXAPARIN 40 MG/0.4 ML SYRINGE SQ SCH (08:35)
[2021-03-24] MEDS: INSULIN GLARGINE, HUMAN 1 UNIT/0.01 ML SQ SCH (08:35)
[2021-03-24] MEDS: NICOTINE 21 MG PATCH TOPICAL SCH (11:29)
== END 2021-03-24 12:44 | disposition home health service (06) | DRG 637 ==
LOC: ED 19:17 → MEDSUR 03-22 16:51
PROVIDERS: ADMIT Internal Medicine; ATTEND Internal Medicine

== ENCOUNTER 2023-05-04 09:21 | Inpatient (IN) ==
[2023-05-04 11:03] LABS: POC Calcium, Ionized 1.18 (1.16-1.32); POC Creatinine 0.5 (0.6-1.2); POC Potassium 4.2 (3.3-5.1)
[2023-05-04] MEDS: morphine 4 MG/ML VIAL IV ONE (11:27)
[2023-05-04] MEDS: HYDROmorphone 0.5 MG/0.5 ML SYRINGE IV ONE (14:50)
[2023-05-04 14:57] LABS: Basophils # (Auto) 0.03 K/mcL (0.00-0.30); Basophils % (Auto) 0.4 % (0.0-2.0); Eosinophils # (Auto) 0.03 K/mcL (0.00-0.70); Eosinophils % (Auto) 0.4 % (0.0-7.0); Hematocrit 37.6 % (34.1-44.9); Hemoglobin 12.3 g/dL (11.2-15.7); Lymphocytes # (Auto) 1.19 K/mcL (1.50-4.80); Lymphocytes % (Auto) 15.3 % (15.5-49.0); Mean Cell Volume 95.4 fL (80.0-100.0); Mean Corpuscular HGB Conc 32.7 g/dL (31.0-36.0); Mean Platelet Volume 10.1 fL (8.8-12.5); Monocytes # (Auto) 0.65 K/mcL (0.10-0.90); Monocytes % (Auto) 8.4 % (1.0-12.0); Neutrophils % (Auto) 75.4 % (38.0-78.0); Platelet Count 223 K/mcL (140-440); RBC 3.94 M/mcL (3.59-5.38); Red Cell Distribution Width 14.1 % (11.5-14.5); WBC 7.8 K/mcL (4.5-11.0)
[2023-05-04 15:09] LABS: ALT/SGPT 11 U/L (<40); AST/SGOT 25 U/L (<32); Albumin 4.1 gm/dL (3.2-5.2); Albumin/Globulin Ratio 1.6 (1.0-2.3); Alkaline Phosphatase 76 U/L (39-117); Bilirubin,Total 0.4 mg/dL (0.1-1.0); Blood Urea Nitrogen 17 mg/dL (8-23); Calcium 8.7 mg/dL (8.6-10.4); Carbon Dioxide 29 mmol/L (22-30); Chloride 98 mmol/L (96-108); Globulin 2.6 gm/dL (2.2-3.7); Glomerular Filtration Rate 98; Glucose 225 mg/dL (70-105)
[2023-05-04 15:17] LABS: ABG Methemoglobin 0.1 % (0.4-1.5); Total Hemoglobin 13.8 gm/Dl (12.0-15.0); VBG Base Excess 4 (-2-3); VBG HCO3 30.1 mmol/L (24.0-28.0); VBG Oxygen Saturation 73.2 % (40.0-70.0); VBG PCO2 53.4 mmHg (41.0-51.0); VBG PH 7.37 U (7.32-7.42); VBG PO2 42.7 mmHg (25.0-40.0); VBG Total CO2 31.7 mmol/L (25.0-29.0)
[2023-05-04] MEDS ORDERED: ZOLPIDEM 5 MG TABLET PO PRN (16:26)
[2023-05-04] MEDS ORDERED: DEXTROSE 50% 50 ML VIAL IV PRN (16:26)
[2023-05-04] MEDS ORDERED: DEXTROSE 31 GM ORAL.SUSP PO PRN (16:26)
[2023-05-04] MEDS ORDERED: IPRATROPIUM/ALBUTEROL 3 ML AMPUL.NEB NEB PRN (16:26)
[2023-05-04] MEDS: INSULIN LISPRO 1 UNIT/0.01 ML UNIT SQ SCH (17:00)
[2023-05-04] MEDS: HYDROmorphone 1 MG/ML SYRINGE IV PRN (17:13)
[2023-05-04 17:22] LABS: INR 0.9 (0.9-1.1); Prothrombin Time 12.7 sec (11.9-14.5)
[2023-05-04] MEDS: DOCUSATE SODIUM 100 MG CAPSULE PO SCH (21:42)
[2023-05-04] MEDS: SENNOSIDES 1 TABLET PO SCH (21:42)
[2023-05-04] MEDS: NICOTINE 21 MG PATCH TOPICAL SCH (21:50)
[2023-05-04] MEDS: LIDOCAINE 4% TOP PATCH TOPICAL SCH (21:50)
[2023-05-04] MEDS: 0.9 % SODIUM CHLORIDE 10 ML SYRINGE IV SCH (21:50)
[2023-05-05] MEDS: NICOTINE 21 MG PATCH TOPICAL SCH (10:02)
[2023-05-05] MEDS ORDERED: FUROSEMIDE 20 MG TABLET PO PRN (10:22)
[2023-05-05] MEDS ORDERED: GLUCAGON 1 MG IJ PRN (10:22)
[2023-05-05] MEDS ORDERED: DEXTROSE 31 GM ORAL.SUSP PO PRN (10:23)
[2023-05-05] MEDS ORDERED: DEXTROSE 50% 50 ML VIAL IV PRN (10:23)
[2023-05-05] MEDS: INSULIN LISPRO 1 UNIT/0.01 ML UNIT SQ SCH (11:37)
[2023-05-05] MEDS: ONDANSETRON 4 MG/2 ML VIAL IV PRN (11:37)
[2023-05-05] MEDS: morphine 30 MG TAB.SR.12H PO SCH (14:59)
[2023-05-05] MEDS: GABAPENTIN 400 MG CAPSULE PO SCH (14:59)
[2023-05-05] MEDS: KETOROLAC 30 MG/ML VIAL IV PRN (16:55)
[2023-05-05] MEDS: INSULIN GLARGINE, HUMAN 1 UNIT/0.01 ML SQ SCH (20:40)
[2023-05-05] MEDS: ATORVASTATIN 40 MG TABLET PO SCH (20:40)
[2023-05-06] MEDS: ACETAMINOPHEN 325 MG TABLET PO PRN (07:51)
[2023-05-06] MEDS: LEVOTHYROXINE 100 MCG TABLET PO SCH (07:52)
[2023-05-06] MEDS: LEVOTHYROXINE 75 MCG TABLET PO SCH (07:52)
[2023-05-06] MEDS: OMEPRAZOLE 20 MG CAPSULE PO SCH (07:52)
[2023-05-06] MEDS: SERTRALINE 100 MG TABLET PO SCH (09:23)
[2023-05-06] MEDS: LISINOPRIL 20 MG TABLET PO SCH (09:23)
[2023-05-06] MEDS: ARIPIPRAZOLE 5 MG TABLET PO SCH (09:23)
[2023-05-06] MEDS: ESCITALOPRAM 20 MG TABLET PO SCH (09:24)
[2023-05-06] MEDS: POTASSIUM CHLORIDE 10 MEQ TABLET PO SCH (09:24)
[2023-05-06] MEDS: ASPIRIN 81 MG TAB.CHEW PO SCH (09:24)
[2023-05-06] MEDS: amLODIPine 10 MG TABLET PO SCH (09:24)
[2023-05-06] MEDS ORDERED: DEXTROSE 31 GM ORAL.SUSP PO PRN (10:21)
[2023-05-06] MEDS ORDERED: DEXTROSE 50% 50 ML VIAL IV PRN (10:21)
[2023-05-06] MEDS: INSULIN LISPRO 1 UNIT/0.01 ML UNIT SQ SCH (12:32)
[2023-05-06] MEDS: INSULIN GLARGINE, HUMAN 1 UNIT/0.01 ML SQ SCH (22:20)
== END 2023-05-07 14:35 | disposition home or self-care (01) | DRG 184 ==
LOC: ED 09:21 → MEDSUR 16:12
PROVIDERS: ADMIT Internal Medicine; ATTEND Internal Medicine

== ENCOUNTER 2024-02-02 10:30 | Inpatient (IN) ==
[2024-02-02] MEDS: ONDANSETRON 4 MG/2 ML VIAL IV ONE (11:07)
[2024-02-02] MEDS: 0.9 % SODIUM CHLORIDE 1,000 ML IV ONE (11:07)
[2024-02-02 11:11] LABS: Basophils # (Auto) 0.01 K/mcL (0.00-0.30); Basophils % (Auto) 0.1 % (0.0-2.0); Eosinophils # (Auto) 0.04 K/mcL (0.00-0.70); Eosinophils % (Auto) 0.4 % (0.0-7.0); Hematocrit 40.2 % (34.1-44.9); Hemoglobin 12.6 g/dL (11.2-15.7); Lymphocytes # (Auto) 0.45 K/mcL (1.50-4.80); Lymphocytes % (Auto) 4.6 % (15.5-49.0); Mean Cell Volume 98.3 fL (80.0-100.0); Mean Corpuscular HGB Conc 31.3 g/dL (31.0-36.0); Mean Platelet Volume 10.1 fL (8.8-12.5); Monocytes # (Auto) 0.31 K/mcL (0.10-0.90); Monocytes % (Auto) 3.1 % (1.0-12.0); Neutrophils % (Auto) 91.6 % (38.0-78.0); Platelet Count 254 K/mcL (140-440); RBC 4.09 M/mcL (3.59-5.38); Red Cell Distribution Width 14.8 % (11.5-14.5); WBC 9.9 K/mcL (4.5-11.0)
[2024-02-02 11:50] LABS: ALT/SGPT 16 U/L (<40); AST/SGOT 25 U/L (<32); Albumin/Globulin Ratio 1.4 (1.0-2.3); Alkaline Phosphatase 108 U/L (39-117); Bilirubin,Total 0.6 mg/dL (0.1-1.0); Blood Urea Nitrogen 28 mg/dL (8-23); Carbon Dioxide 13 mmol/L (22-30); Chloride 90 mmol/L (96-108); Globulin 2.8 gm/dL (2.2-3.7); Glomerular Filtration Rate 60; Glucose 576 mg/dL (70-105); Potassium 5.1 mmol/L (3.3-5.1); Sodium 134 mmol/L (133-145)
[2024-02-02] MEDS: INSULIN REGULAR, HUMAN 50 UNIT in 0.9 % SODIUM CHLORIDE 99.5 ML IV SCH ×2 (12:19→15:46)
[2024-02-02 12:25] LABS: Free T4 (Free Thyroxine) 1.43 ng/dL (0.93-1.70)
[2024-02-02 12:28] LABS: Phosphorous 5.2 mg/dL (2.5-4.5)
[2024-02-02 12:44] LABS: Beta Hydroxybutyrate 7.87 mmol/L (<0.27)
[2024-02-02] MEDS: NICOTINE 21 MG PATCH TOPICAL ONE (13:59)
[2024-02-02 14:14] LABS: Appearance,Urine Turbid (Clear); Bacteria,Urine Many /hpf (0); Bilirubin,Urine Negative (Negative); Color,Urine Yellow; Glucose,Urine (UA) 500 mg/dL (Negative); Ketones,Urine >=160 mg/dL (Negative); Leukocyte Esterase,Urine Negative /uL (Negative); Nitrate,Urine Negative (Negative); PH,Urine 5.5 (5.0-9.0); Protein,Urine Negative (Negative); Urine Amorphous Crystals Mod /hpf; Urine Blood Moderate ery/mcL (Negative); Urine RBC 3 /hpf (0-3); Urine Squamous Epithelial Cell 3 /hpf (0-4); Urine WBC 0 /hpf (0-4); Urobilinogen,Urine Normal
[2024-02-02] MEDS: LACTATED RINGERS 1,000 ML IV ONE (14:43)
[2024-02-02] MEDS ORDERED: POTASSIUM CHLORIDE 20 MEQ TABLET PO PRN (15:20)
[2024-02-02] MEDS ORDERED: IPRATROPIUM/ALBUTEROL 3 ML AMPUL.NEB NEB PRN (15:20)
[2024-02-02] MEDS ORDERED: MAGNESIUM SULFATE 2 GM/50 ML BAG IV PRN (15:20)
[2024-02-02] MEDS ORDERED: POLYETHYLENE GLYCOL 3350 17 GM PACKET PO PRN (15:20)
[2024-02-02] MEDS ORDERED: SENNOSIDES 1 TABLET PO PRN (15:20)
[2024-02-02] MEDS ORDERED: POTASSIUM CHLORIDE 40 MEQ in DEXTROSE 5% IN WATER 500 ML IV PRN (15:20)
[2024-02-02] MEDS ORDERED: METOCLOPRAMIDE 10 MG/2 ML VIAL IV PRN (15:20)
[2024-02-02] MEDS ORDERED: ENALAPRILAT 1.25 MG/ML VIAL IV PRN (15:20)
[2024-02-02] MEDS ORDERED: ONDANSETRON 4 MG/2 ML VIAL IV PRN (15:20)
[2024-02-02] MEDS ORDERED: ACETAMINOPHEN 160 MG/5 ML ORAL.SOL PO PRN (15:20)
[2024-02-02] MEDS: INSULIN REGULAR, HUMAN 1 UNIT/0.01 ML UNIT IV ONE ×3 (15:46→18:03)
[2024-02-02] MEDS: 0.9 % SODIUM CHLORIDE 250 ML IV SCH (15:53)
[2024-02-02 16:15] LABS: Hemoglobin A1C 9.8 % Hgb (4.0-6.0)
[2024-02-02] MEDS: 0.9 % SODIUM CHLORIDE 1,000 ML IV SCH (16:18)
[2024-02-02] MEDS: morphine 30 MG TAB.SR.12H PO SCH (20:32)
[2024-02-02] MEDS: DOCUSATE SODIUM 100 MG CAPSULE PO SCH (20:34)
[2024-02-02] MEDS: 0.9 % SODIUM CHLORIDE 10 ML SYRINGE IV SCH (20:34)
[2024-02-02] MEDS: DEXTROSE 5%-NS 1,000 ML IV SCH (21:21)
[2024-02-02] MEDS: DEXTROSE 50% 50 ML SYRINGE IV ONE ×3 (22:13→23:09)
[2024-02-02] MEDS: DEXTROSE 50% 50 ML VIAL IV ONE (23:09)
[2024-02-03] MEDS: DEXTROSE 50% 50 ML SYRINGE IV PRN (01:16)
[2024-02-03] MEDS: DEXTROSE 50% 50 ML SYRINGE IV ONE (02:06)
[2024-02-03 06:28] LABS: Hematocrit 32.6 % (34.1-44.9); Hemoglobin 10.7 g/dL (11.2-15.7); Mean Cell Volume 94.2 fL (80.0-100.0); Mean Corpuscular HGB Conc 32.8 g/dL (31.0-36.0); Mean Platelet Volume 10.2 fL (8.8-12.5); Platelet Count 228 K/mcL (140-440); RBC 3.46 M/mcL (3.59-5.38); WBC 7.3 K/mcL (4.5-11.0)
[2024-02-03 07:10] LABS: ALT/SGPT 14 U/L (<40); AST/SGOT 24 U/L (<32); Albumin 3.4 gm/dL (3.2-5.2); Albumin/Globulin Ratio 1.5 (1.0-2.3); Alkaline Phosphatase 82 U/L (39-117); Bilirubin,Direct 0.2 mg/dL (<0.3); Bilirubin,Total 0.4 mg/dL (0.1-1.0); Blood Urea Nitrogen 20 mg/dL (8-23); Calcium 8.4 mg/dL (8.6-10.4); Carbon Dioxide 25 mmol/L (22-30); Chloride 103 mmol/L (96-108); Globulin 2.2 gm/dL (2.2-3.7); Glomerular Filtration Rate 92; Glucose 96 mg/dL (70-105); Lactate Dehydrogenase 177 U/L (135-225); Phosphorous 2.6 mg/dL (2.5-4.5); Potassium 3.5 mmol/L (3.3-5.1); Sodium 142 mmol/L (133-145); Triglycerides 73 mg/dL (<150); Uric Acid 5.9 mg/dL (2.5-8.0)
[2024-02-03 07:21] LABS: Beta Hydroxybutyrate 0.62 mmol/L (<0.27)
[2024-02-03] MEDS: LEVOTHYROXINE 125 MCG TABLET PO SCH (07:57)
[2024-02-03] MEDS: INSULIN GLARGINE, HUMAN 1 UNIT/0.01 ML SQ SCH (08:14)
[2024-02-03] MEDS ORDERED: DEXTROSE 50% 50 ML VIAL IV PRN (09:19)
[2024-02-03] MEDS ORDERED: DEXTROSE 31 GM ORAL.SUSP PO PRN (09:19)
[2024-02-03] MEDS: DULoxetine 20 MG CAPSULE PO SCH ×3 (10:01→20:22)
[2024-02-03] MEDS: BACLOFEN 10 MG TABLET PO SCH (10:07)
[2024-02-03] MEDS: FUROSEMIDE 40 MG TABLET PO SCH (10:28)
[2024-02-03] MEDS: SERTRALINE 100 MG TABLET PO SCH (10:29)
[2024-02-03] MEDS: ENOXAPARIN 40 MG/0.4 ML SYRINGE SQ SCH (10:29)
[2024-02-03] MEDS: amLODIPine 10 MG TABLET PO SCH (10:29)
[2024-02-03] MEDS: GABAPENTIN 400 MG CAPSULE PO SCH (10:29)
[2024-02-03] MEDS: INSULIN LISPRO 1 UNIT/0.01 ML UNIT SQ SCH (11:54)
[2024-02-03] MEDS: cefTRIAXone 1 GM VIAL IV SCH (12:16)
[2024-02-03] MEDS: morphine 30 MG TAB.SR.12H PO ONE (12:33)
[2024-02-03 17:44] LABS: Anisocytosis 1+ (None Seen); Band Neutrophils % 5 % (0-10); Basophils % (Manual) 1 % (0-2); Eosinophils % (Manual) 1 % (0-7); Lymphocytes % 24 % (15-49); Monocytes % (Manual) 5 % (1-12); Platelet Estimate NORMAL (Normal); RBC Morphology ABNORMAL (Normal); Segmented Neutrophils % 64 % (38-78)
[2024-02-03] MEDS: ATORVASTATIN 40 MG TABLET PO SCH (20:15)
[2024-02-04 07:02] LABS: ALT/SGPT 20 U/L (<40); AST/SGOT 38 U/L (<32); Albumin 3.5 gm/dL (3.2-5.2); Albumin/Globulin Ratio 1.4 (1.0-2.3); Alkaline Phosphatase 86 U/L (39-117); Bilirubin,Direct < 0.2 mg/dL (0-0.3); Bilirubin,Total 0.3 mg/dL (0.1-1.0); Blood Urea Nitrogen 10 mg/dL (8-23); Calcium 8.4 mg/dL (8.6-10.4); Carbon Dioxide 32 mmol/L (22-30); Chloride 101 mmol/L (96-108); Globulin 2.5 gm/dL (2.2-3.7); Glomerular Filtration Rate 92; Glucose 72 mg/dL (70-105); Lactate Dehydrogenase 212 U/L (135-225); Phosphorous 2.9 mg/dL (2.5-4.5); Sodium 145 mmol/L (133-145); Triglycerides 85 mg/dL (<150); Uric Acid 4.5 mg/dL (2.5-8.0)
[2024-02-04 07:14] LABS: Beta Hydroxybutyrate 0.09 mmol/L (<0.27)
[2024-02-04] MEDS: POTASSIUM CHLORIDE 20 MEQ TABLET PO PRN (08:43)
[2024-02-04] MEDS: INSULIN GLARGINE, HUMAN 1 UNIT/0.01 ML SQ SCH (09:39)
[2024-02-04 13:48] VITALS: TEMP 97.5
[2024-02-04 14:49] VITALS: O2SAT 98
== END 2024-02-04 14:06 | disposition home or self-care (01) | DRG 637 ==
LOC: ED 10:30 → ICU 15:10
PROVIDERS: ADMIT Internal Medicine; ATTEND Internal Medicine

== ENCOUNTER 2024-03-05 14:16 | Inpatient (IN) ==
[2024-03-05 15:08] LABS: Basophils # (Auto) 0.02 K/mcL (0.00-0.30); Basophils % (Auto) 0.2 % (0.0-2.0); Eosinophils # (Auto) 0.06 K/mcL (0.00-0.70); Eosinophils % (Auto) 0.5 % (0.0-7.0); Hemoglobin 13.5 g/dL (11.2-15.7); Lymphocytes # (Auto) 1.05 K/mcL (1.50-4.80); Lymphocytes % (Auto) 9.1 % (15.5-49.0); Mean Corpuscular HGB Conc 32.9 g/dL (31.0-36.0); Mean Platelet Volume 9.8 fL (8.8-12.5); Monocytes # (Auto) 0.45 K/mcL (0.10-0.90); Monocytes % (Auto) 3.9 % (1.0-12.0); Neutrophils % (Auto) 85.1 % (38.0-78.0); Platelet Count 580 K/mcL (140-440); RBC 4.36 M/mcL (3.59-5.38); Red Cell Distribution Width 14.8 % (11.5-14.5); WBC 11.5 K/mcL (4.5-11.0)
[2024-03-05] MEDS: 0.9 % SODIUM CHLORIDE 1,000 ML IV ONE ×2 (15:17→19:32)
[2024-03-05 15:32] LABS: Thyroid Stimulating Hormone 7.47 uIU/mL (0.27-5.01)
[2024-03-05 15:34] LABS: ALT/SGPT 74 U/L (<40); AST/SGOT 56 U/L (<32); Albumin 3.6 gm/dL (3.2-5.2); Albumin/Globulin Ratio 0.9 (1.0-2.3); Alkaline Phosphatase 127 U/L (39-117); Bilirubin,Total 0.8 mg/dL (0.1-1.0); Blood Urea Nitrogen 15 mg/dL (8-23); Calcium 8.6 mg/dL (8.6-10.4); Carbon Dioxide 17 mmol/L (22-30); Chloride 85 mmol/L (96-108); Globulin 3.8 gm/dL (2.2-3.7); Glomerular Filtration Rate 78; Glucose 538 mg/dL (70-105); Potassium 4.7 mmol/L (3.3-5.1); Sodium 131 mmol/L (133-145)
[2024-03-05] MEDS: INSULIN REGULAR, HUMAN 1 UNIT/0.01 ML UNIT IV ONE (15:58)
[2024-03-05] MEDS: INSULIN REGULAR, HUMAN 1 UNIT/0.01 ML UNIT ONE (16:27)
[2024-03-05 17:49] LABS: Blood Urea Nitrogen 16 mg/dL (8-23); Calcium 8.4 mg/dL (8.6-10.4); Carbon Dioxide 15 mmol/L (22-30); Chloride 92 mmol/L (96-108); Glomerular Filtration Rate 92; Glucose 365 mg/dL (70-105); Potassium 3.3 mmol/L (3.3-5.1); Sodium 136 mmol/L (133-145)
[2024-03-05] MEDS: INSULIN REGULAR, HUMAN 50 UNIT in 0.9 % SODIUM CHLORIDE 99.5 ML IV SCH (17:59)
[2024-03-05] MEDS ORDERED: METOCLOPRAMIDE 10 MG/2 ML VIAL IV PRN (19:56)
[2024-03-05] MEDS ORDERED: POTASSIUM CHLORIDE 40 MEQ in DEXTROSE 5% IN WATER 500 ML IV PRN (19:56)
[2024-03-05] MEDS ORDERED: MAGNESIUM SULFATE 2 GM/50 ML BAG IV PRN (19:56)
[2024-03-05] MEDS ORDERED: IPRATROPIUM/ALBUTEROL 3 ML AMPUL.NEB NEB PRN (19:56)
[2024-03-05] MEDS ORDERED: ENALAPRILAT 1.25 MG/ML VIAL IV PRN (19:56)
[2024-03-05] MEDS ORDERED: SENNOSIDES 1 TABLET PO PRN (19:56)
[2024-03-05] MEDS ORDERED: POLYETHYLENE GLYCOL 3350 17 GM PACKET PO PRN (19:56)
[2024-03-05] MEDS ORDERED: POTASSIUM CHLORIDE 20 MEQ TABLET PO PRN (19:56)
[2024-03-05] MEDS ORDERED: ACETAMINOPHEN 160 MG/5 ML ORAL.SOL PO PRN (19:56)
[2024-03-05] MEDS: DOCUSATE SODIUM 100 MG CAPSULE PO SCH (20:59)
[2024-03-05] MEDS: ONDANSETRON 4 MG/2 ML VIAL IV PRN (21:44)
[2024-03-05] MEDS: 0.9 % SODIUM CHLORIDE 1,000 ML IV SCH (21:45)
[2024-03-05] MEDS: morphine 2 MG/ML VIAL IV PRN (21:55)
[2024-03-05 21:58] LABS: Free T4 (Free Thyroxine) 0.84 ng/dL (0.93-1.70)
[2024-03-05] MEDS: morphine 4 MG/ML VIAL ONE (22:13)
[2024-03-05] MEDS: GABAPENTIN 300 MG CAPSULE PO ONE (22:14)
[2024-03-05] MEDS: GABAPENTIN 400 MG CAPSULE PO ONE (22:35)
[2024-03-06 03:11] LABS: Appearance,Urine CLEAR (Clear); Bilirubin,Urine Negative (Negative); Color,Urine YELLOW; Glucose,Urine (UA) >=500 mg/dL (Negative); Ketones,Urine 80 mg/dL (Negative); Leukocyte Esterase,Urine Negative /uL (Negative); Mucus,Urine FEW /hpf; Nitrate,Urine Negative (Negative); Protein,Urine Negative (Negative); Specific Gravity,Urine 1.013 (1.000-1.035); Urine Blood Negative (Negative); Urine RBC 1 /hpf (0-3); Urine Squamous Epithelial Cell < 1 /hpf (0-4); Urine WBC 3 /hpf (0-4); Urobilinogen,Urine Negative
[2024-03-06 05:47] LABS: Basophils # (Auto) 0.02 K/mcL (0.00-0.30); Basophils % (Auto) 0.1 % (0.0-2.0); Eosinophils # (Auto) 0.01 K/mcL (0.00-0.70); Eosinophils % (Auto) 0.1 % (0.0-7.0); Hematocrit 36.4 % (34.1-44.9); Hemoglobin 12.4 g/dL (11.2-15.7); Lymphocytes # (Auto) 1.89 K/mcL (1.50-4.80); Lymphocytes % (Auto) 14.1 % (15.5-49.0); Mean Corpuscular HGB Conc 34.1 g/dL (31.0-36.0); Mean Platelet Volume 9.4 fL (8.8-12.5); Monocytes # (Auto) 0.85 K/mcL (0.10-0.90); Monocytes % (Auto) 6.3 % (1.0-12.0); Neutrophils % (Auto) 78.4 % (38.0-78.0); Platelet Count 568 K/mcL (140-440); Red Cell Distribution Width 15.2 % (11.5-14.5); WBC 13.5 K/mcL (4.5-11.0)
[2024-03-06 06:08] LABS: ALT/SGPT 57 U/L (<40); AST/SGOT 35 U/L (<32); Albumin 3.2 gm/dL (3.2-5.2); Albumin/Globulin Ratio 1.1 (1.0-2.3); Alkaline Phosphatase 109 U/L (39-117); Bilirubin,Direct 0.3 mg/dL (<0.3); Bilirubin,Total 0.5 mg/dL (0.1-1.0); Blood Urea Nitrogen 13 mg/dL (8-23); Calcium 8.2 mg/dL (8.6-10.4); Carbon Dioxide 23 mmol/L (22-30); Chloride 94 mmol/L (96-108); Globulin 2.9 gm/dL (2.2-3.7); Glomerular Filtration Rate 92; Glucose 229 mg/dL (70-105); Lactate Dehydrogenase 284 U/L (135-225); Phosphorous 2.1 mg/dL (2.5-4.5); Potassium 3.4 mmol/L (3.3-5.1); Sodium 134 mmol/L (133-145); Triglycerides 83 mg/dL (<150); Uric Acid 8.3 mg/dL (2.5-8.0)
[2024-03-06] MEDS ORDERED: DEXTROSE 31 GM ORAL.SUSP PO PRN (07:22)
[2024-03-06] MEDS ORDERED: DEXTROSE 50% 50 ML VIAL IV PRN (07:22)
[2024-03-06] MEDS: INSULIN GLARGINE, HUMAN 1 UNIT/0.01 ML SQ SCH (07:47)
[2024-03-06] MEDS: INSULIN LISPRO 1 UNIT/0.01 ML UNIT SQ SCH (07:47)
[2024-03-06] MEDS: ENOXAPARIN 40 MG/0.4 ML SYRINGE SQ SCH (08:54)
[2024-03-06] MEDS: PHOSPHORUS 250 MG TABLET PO SCH (08:54)
[2024-03-06] MEDS: morphine 2 MG/ML VIAL IV PRN (09:15)
[2024-03-06] MEDS ORDERED: 0.9 % SODIUM CHLORIDE 10 ML SYRINGE IV PRN (11:40)
[2024-03-06] MEDS ORDERED: SODIUM CHLORIDE IRRIG SOLUTION 250 ML BOTTLE IRR ONE (11:52)
[2024-03-06] MEDS ORDERED: LIDOCAINE 1% 10 ML VIAL SQ ONE (11:52)
[2024-03-06] MEDS: SERTRALINE 100 MG TABLET PO SCH (14:56)
[2024-03-06] MEDS: NICOTINE 21 MG PATCH TOPICAL SCH (14:57)
[2024-03-06] MEDS: GABAPENTIN 300 MG CAPSULE PO SCH (14:57)
[2024-03-06 16:28] LABS: Blood Urea Nitrogen 10 mg/dL (8-23); Calcium 7.9 mg/dL (8.6-10.4); Carbon Dioxide 26 mmol/L (22-30); Chloride 97 mmol/L (96-108); Glomerular Filtration Rate 97; Glucose 181 mg/dL (70-105); Potassium 3.2 mmol/L (3.3-5.1); Sodium 134 mmol/L (133-145)
[2024-03-06 17:09] LABS: Beta Hydroxybutyrate 1.73 mmol/L (<0.27)
[2024-03-06] MEDS: POTASSIUM CHLORIDE 20 MEQ TABLET PO PRN (18:02)
[2024-03-06] MEDS: ATORVASTATIN 40 MG TABLET PO SCH (20:11)
[2024-03-06] MEDS: morphine 15 MG TAB.SR.12H PO SCH (20:11)
[2024-03-06] MEDS: DULoxetine 20 MG CAPSULE PO SCH (20:12)
[2024-03-06] MEDS: 0.9 % SODIUM CHLORIDE 10 ML SYRINGE IV SCH (20:13)
[2024-03-07 05:53] LABS: Basophils # (Auto) 0.03 K/mcL (0.00-0.30); Basophils % (Auto) 0.3 % (0.0-2.0); Eosinophils # (Auto) 0.03 K/mcL (0.00-0.70); Eosinophils % (Auto) 0.3 % (0.0-7.0); Hematocrit 34.4 % (34.1-44.9); Hemoglobin 11.6 g/dL (11.2-15.7); Lymphocytes # (Auto) 2.18 K/mcL (1.50-4.80); Lymphocytes % (Auto) 22.8 % (15.5-49.0); Mean Cell Volume 92.2 fL (80.0-100.0); Mean Corpuscular HGB Conc 33.7 g/dL (31.0-36.0); Mean Platelet Volume 9.4 fL (8.8-12.5); Monocytes # (Auto) 0.65 K/mcL (0.10-0.90); Monocytes % (Auto) 6.8 % (1.0-12.0); Neutrophils % (Auto) 69.3 % (38.0-78.0); Platelet Count 496 K/mcL (140-440); RBC 3.73 M/mcL (3.59-5.38); Red Cell Distribution Width 15.3 % (11.5-14.5); WBC 9.6 K/mcL (4.5-11.0)
[2024-03-07 06:34] LABS: ALT/SGPT 43 U/L (<40); AST/SGOT 31 U/L (<32); Albumin/Globulin Ratio 1.1 (1.0-2.3); Alkaline Phosphatase 88 U/L (39-117); Bilirubin,Direct 0.3 mg/dL (<0.3); Bilirubin,Total 0.6 mg/dL (0.1-1.0); Blood Urea Nitrogen 8 mg/dL (8-23); Calcium 8.1 mg/dL (8.6-10.4); Carbon Dioxide 27 mmol/L (22-30); Chloride 99 mmol/L (96-108); Globulin 2.7 gm/dL (2.2-3.7); Glomerular Filtration Rate 97; Glucose 129 mg/dL (70-105); Lactate Dehydrogenase 238 U/L (135-225); Potassium 3.1 mmol/L (3.3-5.1); Sodium 135 mmol/L (133-145); Triglycerides 111 mg/dL (<150); Uric Acid 4.5 mg/dL (2.5-8.0)
[2024-03-07] MEDS: LEVOTHYROXINE 125 MCG TABLET PO SCH (07:20)
[2024-03-07] MEDS: amLODIPine 10 MG TABLET PO SCH (09:17)
[2024-03-07] MEDS: NEUTRA PHOS 1 PACKET PO SCH (09:19)
[2024-03-08 06:27] LABS: ALT/SGPT 35 U/L (<40); AST/SGOT 29 U/L (<32); Albumin 2.9 gm/dL (3.2-5.2); Albumin/Globulin Ratio 1.2 (1.0-2.3); Alkaline Phosphatase 93 U/L (39-117); Bilirubin,Direct 0.3 mg/dL (<0.3); Bilirubin,Total 0.5 mg/dL (0.1-1.0); Blood Urea Nitrogen 8 mg/dL (8-23); Calcium 8.1 mg/dL (8.6-10.4); Carbon Dioxide 28 mmol/L (22-30); Chloride 100 mmol/L (96-108); Globulin 2.5 gm/dL (2.2-3.7); Glomerular Filtration Rate 103; Glucose 150 mg/dL (70-105); Lactate Dehydrogenase 383 U/L (135-225); Phosphorous 3.5 mg/dL (2.5-4.5); Potassium 3.7 mmol/L (3.3-5.1); Sodium 137 mmol/L (133-145); Triglycerides 101 mg/dL (<150); Uric Acid 2.6 mg/dL (2.5-8.0)
[2024-03-08] MEDS: morphine 30 MG TAB.SR.12H PO SCH (08:44)
[2024-03-08 13:51] VITALS: TEMP 97.7; O2SAT 92
[2024-03-08] MEDS ORDERED: morphine 15 MG TAB.SR.12H PO SCH (21:00)
== END 2024-03-08 13:44 | disposition home health service (06) | DRG 640 ==
LOC: ED 14:16 → ICU 19:54
PROVIDERS: ADMIT Internal Medicine; ATTEND Student in an Organized Health Care Education/Training Program

== ENCOUNTER 2024-04-12 19:42 | Inpatient (IN) ==
[2024-04-12] MEDS: 0.9 % SODIUM CHLORIDE 1,000 ML IV ONE ×2 (19:50→21:11)
[2024-04-12 20:25] LABS: Basophils # (Auto) 0.01 K/mcL (0.00-0.30); Basophils % (Auto) 0.1 % (0.0-2.0); Eosinophils # (Auto) 0.07 K/mcL (0.00-0.70); Eosinophils % (Auto) 0.5 % (0.0-7.0); Hematocrit 36.1 % (34.1-44.9); Hemoglobin 11.5 g/dL (11.2-15.7); Lymphocytes # (Auto) 0.73 K/mcL (1.50-4.80); Lymphocytes % (Auto) 5.4 % (15.5-49.0); Mean Corpuscular HGB Conc 31.9 g/dL (31.0-36.0); Mean Platelet Volume 10.7 fL (8.8-12.5); Monocytes # (Auto) 0.52 K/mcL (0.10-0.90); Monocytes % (Auto) 3.9 % (1.0-12.0); Neutrophils % (Auto) 89.7 % (38.0-78.0); Platelet Count 264 K/mcL (140-440); RBC 3.72 M/mcL (3.59-5.38); Red Cell Distribution Width 15.1 % (11.5-14.5); WBC 13.4 K/mcL (4.5-11.0)
[2024-04-12 20:46] LABS: Alcohol, Blood < 10.1 mg/dL; Alcohol,Blood < 0.010 gm/dL (<0.010)
[2024-04-12 21:15] LABS: ALT/SGPT 18 U/L (<40); AST/SGOT 26 U/L (<32); Albumin 4.1 gm/dL (3.2-5.2); Albumin/Globulin Ratio 1.4 (1.0-2.3); Alkaline Phosphatase 123 U/L (39-117); Bilirubin,Total 0.4 mg/dL (0.1-1.0); Blood Urea Nitrogen 38 mg/dL (8-23); Calcium 9.3 mg/dL (8.6-10.4); Carbon Dioxide 10 mmol/L (22-30); Chloride 85 mmol/L (96-108); Glomerular Filtration Rate 40; Glucose 888 mg/dL (70-105); Potassium 5.7 mmol/L (3.3-5.1); Sodium 134 mmol/L (133-145)
[2024-04-12 21:37] LABS: Appearance,Urine Clear (Clear); Bilirubin,Urine Negative (Negative); Color,Urine Yellow; Glucose,Urine (UA) 500 mg/dL (Negative); Ketones,Urine 80 mg/dL (Negative); Leukocyte Esterase,Urine Negative /uL (Negative); Nitrate,Urine Negative (Negative); PH,Urine 5.5 (5.0-9.0); Protein,Urine Negative (Negative); Specific Gravity,Urine 1.015 (1.000-1.035); Urine Blood Trace-intact ery/mcL (Negative); Urine RBC < 1 /hpf (0-3); Urine Squamous Epithelial Cell 2 /hpf (0-4); Urine WBC < 1 /hpf (0-4); Urobilinogen,Urine Normal
[2024-04-12] MEDS: INSULIN GLARGINE, HUMAN 1 UNIT/0.01 ML SQ ONE (21:52)
[2024-04-12] MEDS: INSULIN REGULAR, HUMAN 50 UNIT in 0.9 % SODIUM CHLORIDE 99.5 ML IV SCH (21:53)
[2024-04-12] MEDS: LACTATED RINGERS 1,000 ML IV ONE (21:54)
[2024-04-12] MEDS: INSULIN REGULAR, HUMAN 1 UNIT/0.01 ML UNIT ONE ×2 (21:54→23:46)
[2024-04-12] MEDS: INSULIN REGULAR, HUMAN 1 UNIT/0.01 ML UNIT IV ONE ×2 (22:01→23:45)
[2024-04-12 22:28] LABS: Amphetamine Screen,Urine None detected; Barbiturate Screen,Urine None detected; Benzodiazepines Screen,Urine None detected; Cannabinoid Screen,Urine None detected; Cocaine Screen,Urine None detected; Fentanyl, Urine Screen None Detected; Opiate Screen,Urine None detected; Oxycodone, Urine Screen None detected; Phencyclidine Screen,Urine None detected
[2024-04-12] MEDS ORDERED: DEXTROSE 5%-1/2NS W/10MEQ KCL 1,000 ML IV PRN (22:39)
[2024-04-12] MEDS ORDERED: ONDANSETRON 4 MG/2 ML VIAL IV PRN (22:39)
[2024-04-12 22:44] LABS: Thyroid Stimulating Hormone 1.16 uIU/mL (0.27-5.01)
[2024-04-12 23:01] LABS: Blood Urea Nitrogen 38 mg/dL (8-23); Calcium 8.7 mg/dL (8.6-10.4); Chloride 90 mmol/L (96-108); Glomerular Filtration Rate 44; Potassium 5.8 mmol/L (3.3-5.1); Sodium 135 mmol/L (133-145)
[2024-04-12 23:04] LABS: Glucose 858 mg/dL (70-105)
[2024-04-12 23:05] LABS: Carbon Dioxide 7 mmol/L (22-30)
[2024-04-12] MEDS: LACTATED RINGERS 1,000 ML IV PRN (23:06)
[2024-04-12 23:13] LABS: Free T4 (Free Thyroxine) 1.54 ng/dL (0.93-1.70)
[2024-04-12 23:42] LABS: POC Blood Urea Nitrogen 32 (6-20); POC Calcium, Ionized 1.03 (1.16-1.32); POC Chloride 104 (96-108); POC Creatinine 1.2 (0.6-1.2); POC Glucose, Random > 700 (70-105); POC Potassium 4.1 (3.3-5.1); POC Sodium 137 (133-145)
[2024-04-12] MEDS ORDERED: POTASSIUM CHLORIDE 20 MEQ in 0.45 % SODIUM CHLORIDE 1,000 ML IV PRN (23:45)
[2024-04-13 00:33] LABS: Blood Urea Nitrogen 37 mg/dL (8-23); Calcium 8.4 mg/dL (8.6-10.4); Carbon Dioxide 8 mmol/L (22-30); Chloride 96 mmol/L (96-108); Glomerular Filtration Rate 44; Glucose 718 mg/dL (70-105); Potassium 4.4 mmol/L (3.3-5.1); Sodium 141 mmol/L (133-145)
[2024-04-13] MEDS: INSULIN REGULAR, HUMAN 1 UNIT/0.01 ML UNIT IV ONE ×3 (00:45→04:34)
[2024-04-13] MEDS: INSULIN REGULAR, HUMAN 1 UNIT/0.01 ML UNIT ONE ×4 (01:06→18:35)
[2024-04-13 01:40] LABS: Blood Urea Nitrogen 35 mg/dL (8-23); Calcium 8.4 mg/dL (8.6-10.4); Carbon Dioxide 15 mmol/L (22-30); Chloride 100 mmol/L (96-108); Glomerular Filtration Rate 48; Glucose 569 mg/dL (70-105); Potassium 3.7 mmol/L (3.3-5.1); Sodium 141 mmol/L (133-145)
[2024-04-13] MEDS: POTASSIUM CHLORIDE 20 MEQ/10 ML VIAL IV ONE ×2 (02:10)
[2024-04-13] MEDS: POTASSIUM CHLORIDE 40 MEQ in 0.45 % SODIUM CHLORIDE 1,000 ML IV PRN (02:12)
[2024-04-13 03:30] LABS: Blood Urea Nitrogen 32 mg/dL (8-23); Calcium 8.6 mg/dL (8.6-10.4); Carbon Dioxide 21 mmol/L (22-30); Chloride 104 mmol/L (96-108); Glomerular Filtration Rate 53; Glucose 433 mg/dL (70-105); Potassium 3.7 mmol/L (3.3-5.1); Sodium 143 mmol/L (133-145)
[2024-04-13 06:09] LABS: Basophils # (Auto) 0.02 K/mcL (0.00-0.30); Basophils % (Auto) 0.2 % (0.0-2.0); Eosinophils # (Auto) 0.03 K/mcL (0.00-0.70); Eosinophils % (Auto) 0.2 % (0.0-7.0); Hematocrit 30.4 % (34.1-44.9); Hemoglobin 10.1 g/dL (11.2-15.7); Lymphocytes # (Auto) 1.38 K/mcL (1.50-4.80); Lymphocytes % (Auto) 10.5 % (15.5-49.0); Mean Cell Volume 93.5 fL (80.0-100.0); Mean Corpuscular HGB Conc 33.2 g/dL (31.0-36.0); Mean Platelet Volume 10.1 fL (8.8-12.5); Monocytes # (Auto) 1.13 K/mcL (0.10-0.90); Monocytes % (Auto) 8.6 % (1.0-12.0); Neutrophils % (Auto) 80.2 % (38.0-78.0); Platelet Count 220 K/mcL (140-440); RBC 3.25 M/mcL (3.59-5.38); Red Cell Distribution Width 15.1 % (11.5-14.5); WBC 13.1 K/mcL (4.5-11.0)
[2024-04-13 06:15] LABS: ALT/SGPT 21 U/L (<40); AST/SGOT 46 U/L (<32); Albumin 3.5 gm/dL (3.2-5.2); Albumin/Globulin Ratio 1.5 (1.0-2.3); Alkaline Phosphatase 97 U/L (39-117); Bilirubin,Direct < 0.2 mg/dL (0-0.3); Bilirubin,Total 0.3 mg/dL (0.1-1.0); Blood Urea Nitrogen 29 mg/dL (8-23); Calcium 8.6 mg/dL (8.6-10.4); Carbon Dioxide 24 mmol/L (22-30); Chloride 107 mmol/L (96-108); Globulin 2.3 gm/dL (2.2-3.7); Glomerular Filtration Rate 60; Glucose 277 mg/dL (70-105); Lactate Dehydrogenase 173 U/L (135-225); Phosphorous 0.9 mg/dL (2.5-4.5); Potassium 3.7 mmol/L (3.3-5.1); Sodium 144 mmol/L (133-145); Triglycerides 95 mg/dL (<150); Uric Acid 10.7 mg/dL (2.5-8.0)
[2024-04-13] MEDS ORDERED: DEXTROSE 50% 50 ML SYRINGE IV PRN (06:37)
[2024-04-13] MEDS: 0.9 % SODIUM CHLORIDE 10 ML SYRINGE IV SCH (07:06)
[2024-04-13 07:09] LABS: Beta Hydroxybutyrate 0.39 mmol/L (<0.27)
[2024-04-13] MEDS: DEXTROSE 5%-1/2NS W/30MEQ KCL 1,000 ML IV PRN (07:26)
[2024-04-13] MEDS: INSULIN LISPRO 1 UNIT/0.01 ML UNIT SQ SCH (07:28)
[2024-04-13 07:37] LABS: Blood Urea Nitrogen 27 mg/dL (8-23); Calcium 8.6 mg/dL (8.6-10.4); Carbon Dioxide 25 mmol/L (22-30); Chloride 109 mmol/L (96-108); Glomerular Filtration Rate 68; Glucose 154 mg/dL (70-105); Potassium 3.7 mmol/L (3.3-5.1); Sodium 146 mmol/L (133-145)
[2024-04-13] MEDS: INSULIN GLARGINE, HUMAN 1 UNIT/0.01 ML SQ SCH (08:31)
[2024-04-13] MEDS: ENOXAPARIN 40 MG/0.4 ML SYRINGE SQ SCH (08:31)
[2024-04-13] MEDS: DEXTROSE 50% 50 ML SYRINGE IV PRN (08:31)
[2024-04-13] MEDS: POTASSIUM CHLORIDE 10 MEQ/100 ML BAG IV SCH (08:40)
[2024-04-13] MEDS: POTASSIUM CHLORIDE 20 MEQ TABLET PO ONE (08:40)
[2024-04-13 09:54] LABS: Blood Urea Nitrogen 25 mg/dL (8-23); Calcium 8.6 mg/dL (8.6-10.4); Carbon Dioxide 25 mmol/L (22-30); Chloride 109 mmol/L (96-108); Glomerular Filtration Rate 68; Glucose 158 mg/dL (70-105); Potassium 3.9 mmol/L (3.3-5.1); Sodium 147 mmol/L (133-145)
[2024-04-13] MEDS: LACTATED RINGERS 1,000 ML IV SCH ×3 (10:20→20:32)
[2024-04-13] MEDS: NEUTRA PHOS 1 PACKET PO SCH (12:06)
[2024-04-13] MEDS: POTASSIUM PHOSPHATE 40 MEQ in DEXTROSE 5% IN WATER 500 ML IV ONE (12:56)
[2024-04-13 14:29] LABS: Blood Urea Nitrogen 23 mg/dL (8-23); Calcium 8.5 mg/dL (8.6-10.4); Carbon Dioxide 26 mmol/L (22-30); Chloride 110 mmol/L (96-108); Glomerular Filtration Rate 78; Glucose 85 mg/dL (70-105); Potassium 5.4 mmol/L (3.3-5.1); Sodium 146 mmol/L (133-145)
[2024-04-13] MEDS: 0.45 % SODIUM CHLORIDE 1,000 ML IV SCH (15:50)
[2024-04-13] MEDS: cefTRIAXone 2 GM in DEXTROSE 5% IN WATER 50 ML IV SCH (15:50)
[2024-04-13] MEDS: ACETAMINOPHEN 325 MG TABLET PO PRN (17:21)
[2024-04-13 19:00] LABS: Blood Urea Nitrogen 21 mg/dL (8-23); Calcium 8.3 mg/dL (8.6-10.4); Carbon Dioxide 24 mmol/L (22-30); Chloride 106 mmol/L (96-108); Glomerular Filtration Rate 78; Glucose 159 mg/dL (70-105); Potassium 4.7 mmol/L (3.3-5.1); Sodium 142 mmol/L (133-145)
[2024-04-13] MEDS ORDERED: POTASSIUM PHOSPHATE 40 MEQ in DEXTROSE 5% IN WATER 500 ML IV ONE (20:30)
[2024-04-13] MEDS ORDERED: GLUCAGON,HUMAN RECOMBINANT 1 MG VIAL IV PRN (23:29)
[2024-04-13] MEDS ORDERED: DEXTROSE 50% 50 ML VIAL IV PRN (23:34)
[2024-04-13] MEDS ORDERED: DEXTROSE 31 GM ORAL.SUSP PO PRN (23:34)
[2024-04-13] MEDS: DEXTROSE 5%-1/2NS 1,000 ML IV SCH (23:48)
[2024-04-14] MEDS: POTASSIUM CHLORIDE 20 MEQ in DEXTROSE 5% IN WATER 250 ML IV ONE (00:23)
[2024-04-14] MEDS: INSULIN LISPRO 1 UNIT/0.01 ML UNIT SQ SCH (05:16)
[2024-04-14 05:49] LABS: Basophils # (Auto) 0.02 K/mcL (0.00-0.30); Basophils % (Auto) 0.2 % (0.0-2.0); Eosinophils # (Auto) 0.02 K/mcL (0.00-0.70); Eosinophils % (Auto) 0.2 % (0.0-7.0); Hematocrit 33.5 % (34.1-44.9); Hemoglobin 10.8 g/dL (11.2-15.7); Lymphocytes # (Auto) 1.31 K/mcL (1.50-4.80); Lymphocytes % (Auto) 12.2 % (15.5-49.0); Mean Cell Volume 95.4 fL (80.0-100.0); Mean Corpuscular HGB Conc 32.2 g/dL (31.0-36.0); Mean Platelet Volume 10.2 fL (8.8-12.5); Monocytes # (Auto) 0.58 K/mcL (0.10-0.90); Monocytes % (Auto) 5.4 % (1.0-12.0); Neutrophils % (Auto) 81.8 % (38.0-78.0); Platelet Count 192 K/mcL (140-440); RBC 3.51 M/mcL (3.59-5.38); Red Cell Distribution Width 15.8 % (11.5-14.5); WBC 10.8 K/mcL (4.5-11.0)
[2024-04-14] MEDS: INSULIN LISPRO 1 UNIT/0.01 ML UNIT SQ ONE (06:00)
[2024-04-14 06:18] LABS: ALT/SGPT 23 U/L (<40); AST/SGOT 55 U/L (<32); Albumin 3.4 gm/dL (3.2-5.2); Albumin/Globulin Ratio 1.4 (1.0-2.3); Alkaline Phosphatase 90 U/L (39-117); Bilirubin,Direct 0.2 mg/dL (<0.3); Bilirubin,Total 0.4 mg/dL (0.1-1.0); Blood Urea Nitrogen 17 mg/dL (8-23); Calcium 8.3 mg/dL (8.6-10.4); Carbon Dioxide 22 mmol/L (22-30); Chloride 105 mmol/L (96-108); Globulin 2.4 gm/dL (2.2-3.7); Glomerular Filtration Rate 78; Glucose 262 mg/dL (70-105); Lactate Dehydrogenase 239 U/L (135-225); Phosphorous 2.9 mg/dL (2.5-4.5); Potassium 4.6 mmol/L (3.3-5.1); Sodium 140 mmol/L (133-145); Triglycerides 85 mg/dL (<150); Uric Acid 6.6 mg/dL (2.5-8.0)
[2024-04-14] MEDS ORDERED: DEXTROSE 5%-1/2NS 1,000 ML IV PRN (07:19)
[2024-04-14] MEDS ORDERED: INSULIN GLARGINE, HUMAN 1 UNIT/0.01 ML SQ SCH (09:00)
[2024-04-14] MEDS: INSULIN GLARGINE, HUMAN 1 UNIT/0.01 ML SQ SCH (11:15)
[2024-04-14] MEDS: GABAPENTIN 300 MG CAPSULE PO SCH (20:35)
[2024-04-15 06:17] LABS: Basophils # (Auto) 0.01 K/mcL (0.00-0.30); Basophils % (Auto) 0.2 % (0.0-2.0); Eosinophils # (Auto) 0.03 K/mcL (0.00-0.70); Eosinophils % (Auto) 0.6 % (0.0-7.0); Hematocrit 36.4 % (34.1-44.9); Hemoglobin 11.5 g/dL (11.2-15.7); Lymphocytes # (Auto) 1.72 K/mcL (1.50-4.80); Lymphocytes % (Auto) 32.9 % (15.5-49.0); Mean Cell Volume 97.6 fL (80.0-100.0); Mean Corpuscular HGB Conc 31.6 g/dL (31.0-36.0); Mean Platelet Volume 10.2 fL (8.8-12.5); Monocytes # (Auto) 0.37 K/mcL (0.10-0.90); Monocytes % (Auto) 7.1 % (1.0-12.0); Neutrophils % (Auto) 59.2 % (38.0-78.0); Platelet Count 165 K/mcL (140-440); RBC 3.73 M/mcL (3.59-5.38); Red Cell Distribution Width 15.6 % (11.5-14.5); WBC 5.2 K/mcL (4.5-11.0)
[2024-04-15 06:30] LABS: ALT/SGPT 35 U/L (<40); AST/SGOT 64 U/L (<32); Albumin 3.4 gm/dL (3.2-5.2); Albumin/Globulin Ratio 1.4 (1.0-2.3); Alkaline Phosphatase 98 U/L (39-117); Bilirubin,Direct 0.3 mg/dL (<0.3); Bilirubin,Total 0.7 mg/dL (0.1-1.0); Blood Urea Nitrogen 13 mg/dL (8-23); Calcium 8.2 mg/dL (8.6-10.4); Carbon Dioxide 22 mmol/L (22-30); Chloride 97 mmol/L (96-108); Globulin 2.4 gm/dL (2.2-3.7); Glomerular Filtration Rate 97; Glucose 342 mg/dL (70-105); Lactate Dehydrogenase 240 U/L (135-225); Potassium 4.8 mmol/L (3.3-5.1); Sodium 133 mmol/L (133-145); Triglycerides 92 mg/dL (<150)
[2024-04-15] MEDS: LEVOTHYROXINE 125 MCG TABLET PO SCH (08:12)
[2024-04-15] MEDS: INSULIN LISPRO 1 UNIT/0.01 ML UNIT SQ SCH (08:12)
[2024-04-15] MEDS: INSULIN LISPRO 1 UNIT/0.01 ML UNIT SQ ONE (08:20)
[2024-04-15] MEDS: PHOSPHORUS 250 MG TABLET PO SCH (08:56)
[2024-04-15] MEDS: SERTRALINE 100 MG TABLET PO SCH (08:57)
[2024-04-16 07:07] LABS: ALT/SGPT 31 U/L (<40); AST/SGOT 44 U/L (<32); Albumin 3.3 gm/dL (3.2-5.2); Albumin/Globulin Ratio 1.4 (1.0-2.3); Alkaline Phosphatase 104 U/L (39-117); Bilirubin,Direct 0.3 mg/dL (<0.3); Bilirubin,Total 0.8 mg/dL (0.1-1.0); Blood Urea Nitrogen 16 mg/dL (8-23); Calcium 8.6 mg/dL (8.6-10.4); Carbon Dioxide 28 mmol/L (22-30); Chloride 99 mmol/L (96-108); Globulin 2.4 gm/dL (2.2-3.7); Glomerular Filtration Rate 97; Glucose 187 mg/dL (70-105); Lactate Dehydrogenase 233 U/L (135-225); Phosphorous 3.9 mg/dL (2.5-4.5); Potassium 4.1 mmol/L (3.3-5.1); Sodium 138 mmol/L (133-145); Triglycerides 61 mg/dL (<150); Uric Acid 3.2 mg/dL (2.5-8.0)
[2024-04-16 07:51] VITALS: TEMP 98.4
[2024-04-16] MEDS: DULoxetine 20 MG CAPSULE PO SCH (08:54)
[2024-04-16] MEDS: amLODIPine 10 MG TABLET PO SCH (08:55)
[2024-04-16] MEDS ORDERED: ENALAPRILAT 1.25 MG/ML VIAL IV PRN (10:23)
[2024-04-16 12:59] VITALS: O2SAT 100
[2024-04-16] MEDS ORDERED: ATORVASTATIN 40 MG TABLET PO SCH (21:00)
== END 2024-04-16 13:15 | disposition home or self-care (01) | DRG 637 ==
LOC: ED 19:42 → ICU 22:35 → MEDSUR 04-15 17:18
PROVIDERS: ADMIT Student in an Organized Health Care Education/Training Program; ATTEND Student in an Organized Health Care Education/Training Program

== ENCOUNTER 2024-07-24 12:03 | Inpatient (IN) ==
[2024-07-24] MEDS ORDERED: LORazepam 2 MG/ML VIAL IV PRN (12:16)
[2024-07-24] MEDS ORDERED: ONDANSETRON 4 MG/2 ML VIAL IV PRN (12:16)
[2024-07-24] MEDS ORDERED: DEXTROSE 31 GM ORAL.SUSP PO PRN (12:25)
[2024-07-24] MEDS: 0.9 % SODIUM CHLORIDE 1,000 ML IV SCH (13:30)
[2024-07-24 13:36] LABS: INR 0.9 (0.9-1.1); Prothrombin Time 12.6 sec (11.9-14.5)
[2024-07-24 13:37] LABS: Basophils # (Auto) 0.03 K/mcL (0.00-0.30); Basophils % (Auto) 0.2 % (0.0-2.0); Eosinophils # (Auto) 0.02 K/mcL (0.00-0.70); Eosinophils % (Auto) 0.1 % (0.0-7.0); Hemoglobin 11.9 g/dL (11.2-15.7); Lymphocytes # (Auto) 1.24 K/mcL (1.50-4.80); Lymphocytes % (Auto) 9.3 % (15.5-49.0); Mean Cell Volume 92.8 fL (80.0-100.0); Mean Corpuscular HGB Conc 33.1 g/dL (31.0-36.0); Mean Platelet Volume 10.6 fL (8.8-12.5); Monocytes # (Auto) 0.52 K/mcL (0.10-0.90); Monocytes % (Auto) 3.9 % (1.0-12.0); Neutrophils % (Auto) 86.4 % (38.0-78.0); Platelet Count 274 K/mcL (140-440); RBC 3.88 M/mcL (3.59-5.38); Red Cell Distribution Width 15.5 % (11.5-14.5); WBC 13.4 K/mcL (4.5-11.0)
[2024-07-24] MEDS: ACETAMINOPHEN 1,000 MG/100 ML BAG IV SCH (13:37)
[2024-07-24] MEDS: HYDROmorphone 1 MG/ML SYRINGE IV PRN (13:38)
[2024-07-24 13:47] LABS: ALT/SGPT 16 U/L (<40); AST/SGOT 17 U/L (<32); Albumin 3.4 gm/dL (3.2-5.2); Albumin/Globulin Ratio 1.4 (1.0-2.3); Alkaline Phosphatase 100 U/L (39-117); Bilirubin,Direct 0.2 mg/dL (<0.3); Bilirubin,Total 0.4 mg/dL (0.1-1.0); Blood Urea Nitrogen 11 mg/dL (8-23); Calcium 8.5 mg/dL (8.6-10.4); Carbon Dioxide 28 mmol/L (22-30); Chloride 92 mmol/L (96-108); Globulin 2.5 gm/dL (2.2-3.7); Glomerular Filtration Rate 78; Glucose 369 mg/dL (70-105); Lactate Dehydrogenase 204 U/L (135-225); Phosphorous 2.3 mg/dL (2.5-4.5); Sodium 134 mmol/L (133-145); Triglycerides 171 mg/dL (<150); Uric Acid 3.3 mg/dL (2.5-8.0)
[2024-07-24] MEDS: PIPERACILLIN SODIUM/TAZOBACTAM 3.375 GM in DEXTROSE 5% IN WATER 100 ML IV SCH (14:52)
[2024-07-24] MEDS: PIPERACILLIN SODIUM/TAZOBACTAM 3.375 GM in DEXTROSE 5% IN WATER 50 ML IV SCH (14:52)
[2024-07-24 15:28] LABS: Hemoglobin A1C 9.5 % Hgb (4.0-6.0)
[2024-07-24] MEDS ORDERED: IOPAMIDOL 50 ML BOTTLE IV ONE (15:48)
[2024-07-24] MEDS: PANTOPRAZOLE 40 MG VIAL IV SCH (16:55)
[2024-07-24] MEDS: INSULIN LISPRO 1 UNIT/0.01 ML UNIT SQ SCH (17:15)
[2024-07-24] MEDS: METOCLOPRAMIDE 10 MG/2 ML VIAL IV SCH (17:15)
[2024-07-24 18:05] LABS: Appearance,Urine Cloudy (Clear); Bacteria,Urine Many /hpf (0); Bilirubin,Urine Negative (Negative); Color,Urine Yellow; Glucose,Urine (UA) >=1000 mg/dL (Negative); Ketones,Urine 40 mg/dL (Negative); Leukocyte Esterase,Urine Negative /uL (Negative); Nitrate,Urine Positive (Negative); PH,Urine 5.5 (5.0-9.0); Protein,Urine Negative (Negative); Urine Blood Trace-lysed ery/mcL (Negative); Urine RBC 6 /hpf (0-3); Urine Squamous Epithelial Cell 2 /hpf (0-4); Urine WBC 30 /hpf (0-4); Urobilinogen,Urine Normal
[2024-07-25 07:06] LABS: ALT/SGPT 12 U/L (<40); AST/SGOT 16 U/L (<32); Albumin 2.9 gm/dL (3.2-5.2); Albumin/Globulin Ratio 1.3 (1.0-2.3); Alkaline Phosphatase 84 U/L (39-117); Bilirubin,Direct < 0.2 mg/dL (0-0.3); Bilirubin,Total 0.3 mg/dL (0.1-1.0); Blood Urea Nitrogen 7 mg/dL (8-23); Calcium 7.5 mg/dL (8.6-10.4); Carbon Dioxide 26 mmol/L (22-30); Chloride 98 mmol/L (96-108); Globulin 2.2 gm/dL (2.2-3.7); Glomerular Filtration Rate 97; Glucose 317 mg/dL (70-105); Lactate Dehydrogenase 175 U/L (135-225); Phosphorous 3.5 mg/dL (2.5-4.5); Potassium 3.1 mmol/L (3.3-5.1); Sodium 136 mmol/L (133-145); Triglycerides 86 mg/dL (<150); Uric Acid 1.9 mg/dL (2.5-8.0)
[2024-07-25] MEDS: LEVOTHYROXINE 100 MCG VIAL IV SCH (07:35)
[2024-07-25] MEDS: DIAZEPAM 10 MG/2 ML SYRINGE IV PRN (12:44)
[2024-07-25] MEDS: POTASSIUM CHLORIDE 40 MEQ in DEXTROSE 5% IN WATER 500 ML IV SCH (14:16)
[2024-07-25] MEDS: GABAPENTIN 300 MG CAPSULE PO SCH (15:05)
[2024-07-26 06:34] LABS: Basophils # (Auto) 0.02 K/mcL (0.00-0.30); Basophils % (Auto) 0.3 % (0.0-2.0); Eosinophils # (Auto) 0.09 K/mcL (0.00-0.70); Eosinophils % (Auto) 1.3 % (0.0-7.0); Hematocrit 34.4 % (34.1-44.9); Hemoglobin 11.4 g/dL (11.2-15.7); Lymphocytes # (Auto) 1.37 K/mcL (1.50-4.80); Lymphocytes % (Auto) 19.3 % (15.5-49.0); Mean Cell Volume 93.5 fL (80.0-100.0); Mean Corpuscular HGB Conc 33.1 g/dL (31.0-36.0); Mean Platelet Volume 10.2 fL (8.8-12.5); Monocytes # (Auto) 0.52 K/mcL (0.10-0.90); Monocytes % (Auto) 7.3 % (1.0-12.0); Neutrophils % (Auto) 71.5 % (38.0-78.0); Platelet Count 289 K/mcL (140-440); RBC 3.68 M/mcL (3.59-5.38); Red Cell Distribution Width 15.6 % (11.5-14.5); WBC 7.1 K/mcL (4.5-11.0)
[2024-07-26 07:00] LABS: ALT/SGPT 12 U/L (<40); AST/SGOT 15 U/L (<32); Albumin 2.8 gm/dL (3.2-5.2); Albumin/Globulin Ratio 1.5 (1.0-2.3); Alkaline Phosphatase 76 U/L (39-117); Bilirubin,Direct < 0.2 mg/dL (0-0.3); Bilirubin,Total 0.2 mg/dL (0.1-1.0); Blood Urea Nitrogen 5 mg/dL (8-23); Calcium 7.4 mg/dL (8.6-10.4); Carbon Dioxide 26 mmol/L (22-30); Chloride 105 mmol/L (96-108); Globulin 1.9 gm/dL (2.2-3.7); Glomerular Filtration Rate 103; Glucose 161 mg/dL (70-105); Lactate Dehydrogenase 168 U/L (135-225); Phosphorous 2.8 mg/dL (2.5-4.5); Potassium 3.4 mmol/L (3.3-5.1); Sodium 139 mmol/L (133-145); Triglycerides 101 mg/dL (<150); Uric Acid 1.4 mg/dL (2.5-8.0)
[2024-07-26] MEDS: DULoxetine 20 MG CAPSULE PO SCH (08:43)
[2024-07-26] MEDS: amLODIPine 10 MG TABLET PO SCH (08:44)
[2024-07-26] MEDS ORDERED: SCOPOLAMINE 1 PATCH PATCH TOPICAL PRN (09:25)
[2024-07-26] MEDS ORDERED: MIDAZOLAM 2 MG/2 ML VIAL ONE (10:50)
[2024-07-26] MEDS ORDERED: PROPOFOL 200 MG/20 ML VIAL IV ONE (10:50)
[2024-07-26] MEDS ORDERED: KETAMINE 50 MG/ML Syringe IV ONE (10:50)
[2024-07-26] MEDS ORDERED: ONDANSETRON 4 MG/2 ML VIAL ONE (10:51)
[2024-07-26] MEDS ORDERED: DEXAMETHASONE 10 MG/ML VIAL ONE (10:51)
[2024-07-26] MEDS ORDERED: KETOROLAC 30 MG/ML VIAL ONE (10:51)
[2024-07-26] MEDS ORDERED: GLYCOPYRROLATE 0.2 MG/ML VIAL IV ONE (10:51)
[2024-07-26] MEDS ORDERED: TRANEXAMIC ACID 1,000 MG/10 ML VIAL ONE (10:51)
[2024-07-26] MEDS ORDERED: LIDOCAINE 2% PF 5 ML VIAL ONE (10:51)
[2024-07-26] MEDS ORDERED: METOCLOPRAMIDE 10 MG/2 ML VIAL ONE (10:51)
[2024-07-26] MEDS ORDERED: ROCURONIUM 10 MG/ML ML IV ONE (13:48)
[2024-07-26] MEDS: VANCOMYCIN 1 GM VIAL TOPICAL SCH ×2 (14:00→16:22)
[2024-07-26] MEDS: GENTAMICIN SULFATE 800 MG/20 ML VIAL IR ONE (14:00)
[2024-07-26] MEDS ORDERED: IPRATROPIUM/ALBUTEROL 3 ML AMPUL.NEB NEB PRN (14:10)
[2024-07-26] MEDS ORDERED: fentaNYL 100 MCG/2 ML VIAL IV PRN (14:10)
[2024-07-26] MEDS ORDERED: DROPERIDOL 5 MG/2 ML VIAL IV PRN (14:10)
[2024-07-26] MEDS ORDERED: HYDROmorphone 0.5 MG/0.5 ML SYRINGE IV PRN (14:10)
[2024-07-26] MEDS ORDERED: SUGAMMADEX SODIUM 200 MG/2 ML VIAL IV ONE (14:28)
[2024-07-26] MEDS ORDERED: HYDROmorphone 0.5 MG/0.5 ML SYRINGE ONE ×2 (14:31→14:58)
[2024-07-26] MEDS ORDERED: fentaNYL 100 MCG/2 ML VIAL ONE (14:55)
[2024-07-26] MEDS: ACETAMINOPHEN 1,000 MG/100 ML BAG IV ONE (15:38)
[2024-07-26] MEDS ORDERED: ROPIVACAINE HCL/PF 30 ML VIAL IJ ONE (15:50)
[2024-07-26] MEDS: LACTATED RINGERS 1,000 ML IV SCH (16:04)
[2024-07-26 18:58] LABS: Blood Urea Nitrogen 11 mg/dL (8-23); Calcium 7.6 mg/dL (8.6-10.4); Carbon Dioxide 9 mmol/L (22-30); Chloride 100 mmol/L (96-108); Glomerular Filtration Rate 68; Glucose 604 mg/dL (70-105); Potassium 4.5 mmol/L (3.3-5.1); Sodium 136 mmol/L (133-145)
[2024-07-26] MEDS: INSULIN LISPRO 1 UNIT/0.01 ML UNIT SQ SCH (19:04)
[2024-07-26 20:34] LABS: Appearance,Urine Clear (Clear); Bilirubin,Urine Small mg/dL (Negative); Color,Urine Yellow; Glucose,Urine (UA) 500 mg/dL (Negative); Ketones,Urine >=160 mg/dL (Negative); Leukocyte Esterase,Urine Negative /uL (Negative); Mucus,Urine Few /hpf; Nitrate,Urine Negative (Negative); Protein,Urine Negative (Negative); Specific Gravity,Urine 1.015 (1.000-1.035); Urine Blood Trace-lysed ery/mcL (Negative); Urine RBC 0 /hpf (0-3); Urine Squamous Epithelial Cell 1 /hpf (0-4); Urine WBC 3 /hpf (0-4); Urobilinogen,Urine Normal
[2024-07-26] MEDS: ATORVASTATIN 40 MG TABLET PO SCH (20:46)
[2024-07-26] MEDS: INSULIN GLARGINE, HUMAN 1 UNIT/0.01 ML SQ SCH (20:47)
[2024-07-26] MEDS ORDERED: POTASSIUM CHLORIDE 20 MEQ TABLET PO PRN (21:54)
[2024-07-26] MEDS ORDERED: POTASSIUM CHLORIDE 40 MEQ in DEXTROSE 5% IN WATER 500 ML IV PRN (21:54)
[2024-07-26] MEDS: 0.9 % SODIUM CHLORIDE 1,000 ML IV SCH ×2 (21:57→22:33)
[2024-07-26] MEDS: INSULIN REGULAR, HUMAN 1 UNIT/0.01 ML UNIT IV ONE (22:25)
[2024-07-26] MEDS: INSULIN REGULAR, HUMAN 50 UNIT in 0.9 % SODIUM CHLORIDE 99.5 ML IV SCH (22:30)
[2024-07-26] MEDS: INSULIN REGULAR, HUMAN 1 UNIT/0.01 ML UNIT ONE ×2 (22:44→22:45)
[2024-07-26 23:29] LABS: Beta Hydroxybutyrate 1.02 mmol/L (<0.27)
[2024-07-27] MEDS: DEXTROSE 5%-NS 1,000 ML IV SCH (00:25)
[2024-07-27] MEDS: DEXTROSE 50% 50 ML VIAL IV PRN (03:38)
[2024-07-27] MEDS: DEXTROSE 50% 50 ML SYRINGE IV ONE ×3 (03:50→13:37)
[2024-07-27 05:42] LABS: Basophils # (Auto) 0.05 K/mcL (0.00-0.30); Basophils % (Auto) 0.3 % (0.0-2.0); Eosinophils # (Auto) 0.04 K/mcL (0.00-0.70); Eosinophils % (Auto) 0.3 % (0.0-7.0); Hematocrit 34.1 % (34.1-44.9); Hemoglobin 11.1 g/dL (11.2-15.7); Lymphocytes # (Auto) 2.16 K/mcL (1.50-4.80); Lymphocytes % (Auto) 13.7 % (15.5-49.0); Mean Cell Volume 94.2 fL (80.0-100.0); Mean Corpuscular HGB Conc 32.6 g/dL (31.0-36.0); Mean Platelet Volume 9.8 fL (8.8-12.5); Monocytes # (Auto) 1.04 K/mcL (0.10-0.90); Monocytes % (Auto) 6.6 % (1.0-12.0); Neutrophils % (Auto) 78.8 % (38.0-78.0); Platelet Count 314 K/mcL (140-440); RBC 3.62 M/mcL (3.59-5.38); Red Cell Distribution Width 16.3 % (11.5-14.5); WBC 15.7 K/mcL (4.5-11.0)
[2024-07-27 06:01] LABS: ALT/SGPT 13 U/L (<40); AST/SGOT 19 U/L (<32); Albumin 2.6 gm/dL (3.2-5.2); Albumin/Globulin Ratio 1.4 (1.0-2.3); Alkaline Phosphatase 77 U/L (39-117); Bilirubin,Direct < 0.2 mg/dL (0-0.3); Bilirubin,Total 0.2 mg/dL (0.1-1.0); Blood Urea Nitrogen 8 mg/dL (8-23); Calcium 7.3 mg/dL (8.6-10.4); Carbon Dioxide 24 mmol/L (22-30); Chloride 108 mmol/L (96-108); Globulin 1.9 gm/dL (2.2-3.7); Glomerular Filtration Rate 92; Glucose 98 mg/dL (70-105); Lactate Dehydrogenase 184 U/L (135-225); Phosphorous 2.5 mg/dL (2.5-4.5); Potassium 3.5 mmol/L (3.3-5.1); Sodium 142 mmol/L (133-145); Triglycerides 90 mg/dL (<150)
[2024-07-27] MEDS ORDERED: DEXTROSE 50% 50 ML VIAL IV PRN (07:23)
[2024-07-27] MEDS ORDERED: DEXTROSE 31 GM ORAL.SUSP PO PRN (07:23)
[2024-07-27] MEDS: MAGNESIUM SULFATE 2 GM/50 ML BAG IV PRN (07:44)
[2024-07-27] MEDS: INSULIN LISPRO 1 UNIT/0.01 ML UNIT SQ SCH (07:56)
[2024-07-27] MEDS: SERTRALINE 100 MG TABLET PO SCH (09:02)
[2024-07-27] MEDS ORDERED: DEXTROSE 50% 50 ML SYRINGE IV PRN (13:45)
[2024-07-28] MEDS: DEXTROSE 50% 50 ML SYRINGE IV PRN (01:20)
[2024-07-28 05:42] LABS: Basophils # (Auto) 0.03 K/mcL (0.00-0.30); Basophils % (Auto) 0.4 % (0.0-2.0); Eosinophils # (Auto) 0.06 K/mcL (0.00-0.70); Eosinophils % (Auto) 0.8 % (0.0-7.0); Hematocrit 34.5 % (34.1-44.9); Hemoglobin 11.4 g/dL (11.2-15.7); Lymphocytes # (Auto) 1.62 K/mcL (1.50-4.80); Lymphocytes % (Auto) 20.5 % (15.5-49.0); Mean Cell Volume 93.2 fL (80.0-100.0); Mean Platelet Volume 9.9 fL (8.8-12.5); Monocytes # (Auto) 0.43 K/mcL (0.10-0.90); Monocytes % (Auto) 5.4 % (1.0-12.0); Neutrophils % (Auto) 72.6 % (38.0-78.0); Platelet Count 305 K/mcL (140-440); Red Cell Distribution Width 16.3 % (11.5-14.5); WBC 7.9 K/mcL (4.5-11.0)
[2024-07-28 06:01] LABS: ALT/SGPT 13 U/L (<40); AST/SGOT 20 U/L (<32); Albumin 2.4 gm/dL (3.2-5.2); Albumin/Globulin Ratio 1.1 (1.0-2.3); Alkaline Phosphatase 82 U/L (39-117); Bilirubin,Direct < 0.2 mg/dL (0-0.3); Bilirubin,Total 0.3 mg/dL (0.1-1.0); Blood Urea Nitrogen 8 mg/dL (8-23); Calcium 7.6 mg/dL (8.6-10.4); Carbon Dioxide 24 mmol/L (22-30); Chloride 112 mmol/L (96-108); Globulin 2.2 gm/dL (2.2-3.7); Glomerular Filtration Rate 97; Glucose 65 mg/dL (70-105); Lactate Dehydrogenase 187 U/L (135-225); Phosphorous 2.6 mg/dL (2.5-4.5); Potassium 3.5 mmol/L (3.3-5.1); Sodium 146 mmol/L (133-145); Triglycerides 141 mg/dL (<150); Uric Acid 1.9 mg/dL (2.5-8.0)
[2024-07-28] MEDS: INSULIN LISPRO 1 UNIT/0.01 ML UNIT SQ SCH (07:45)
[2024-07-28] MEDS: DEXTROSE 5% IN WATER 500 ML IV ONE (07:48)
[2024-07-28] MEDS: MAGNESIUM CITRATE 300 ML ORAL.SOL PO SCH (13:32)
[2024-07-28] MEDS: PANTOPRAZOLE 40 MG TABLET PO SCH (16:40)
[2024-07-28] MEDS: 0.9 % SODIUM CHLORIDE 10 ML SYRINGE IV SCH (20:25)
[2024-07-28] MEDS: INSULIN GLARGINE, HUMAN 1 UNIT/0.01 ML SQ SCH (21:43)
[2024-07-29] MEDS: DEXTROSE 5% IN WATER 1,000 ML IV SCH (05:25)
[2024-07-29 06:28] LABS: Basophils # (Auto) 0.02 K/mcL (0.00-0.30); Basophils % (Auto) 0.3 % (0.0-2.0); Eosinophils # (Auto) 0.02 K/mcL (0.00-0.70); Eosinophils % (Auto) 0.3 % (0.0-7.0); Hematocrit 36.1 % (34.1-44.9); Hemoglobin 11.8 g/dL (11.2-15.7); Lymphocytes # (Auto) 0.85 K/mcL (1.50-4.80); Lymphocytes % (Auto) 11.1 % (15.5-49.0); Mean Cell Volume 93.3 fL (80.0-100.0); Mean Corpuscular HGB Conc 32.7 g/dL (31.0-36.0); Mean Platelet Volume 9.5 fL (8.8-12.5); Monocytes # (Auto) 0.53 K/mcL (0.10-0.90); Monocytes % (Auto) 6.9 % (1.0-12.0); Neutrophils % (Auto) 81.3 % (38.0-78.0); Platelet Count 294 K/mcL (140-440); RBC 3.87 M/mcL (3.59-5.38); Red Cell Distribution Width 16.4 % (11.5-14.5); WBC 7.7 K/mcL (4.5-11.0)
[2024-07-29 06:51] LABS: ALT/SGPT 13 U/L (<40); AST/SGOT 22 U/L (<32); Albumin 2.6 gm/dL (3.2-5.2); Albumin/Globulin Ratio 1.1 (1.0-2.3); Alkaline Phosphatase 87 U/L (39-117); Bilirubin,Direct < 0.2 mg/dL (0-0.3); Bilirubin,Total 0.2 mg/dL (0.1-1.0); Blood Urea Nitrogen 10 mg/dL (8-23); Calcium 7.9 mg/dL (8.6-10.4); Carbon Dioxide 27 mmol/L (22-30); Chloride 105 mmol/L (96-108); Globulin 2.3 gm/dL (2.2-3.7); Glomerular Filtration Rate 97; Glucose 74 mg/dL (70-105); Lactate Dehydrogenase 202 U/L (135-225); Phosphorous 3.1 mg/dL (2.5-4.5); Potassium 3.4 mmol/L (3.3-5.1); Sodium 139 mmol/L (133-145); Triglycerides 102 mg/dL (<150); Uric Acid 1.6 mg/dL (2.5-8.0)
[2024-07-29] MEDS: POTASSIUM CHLORIDE 20 MEQ TABLET PO PRN (08:27)
[2024-07-29] MEDS: LEVOTHYROXINE 125 MCG TABLET PO SCH (08:28)
[2024-07-30 06:28] LABS: ALT/SGPT 15 U/L (<40); AST/SGOT 21 U/L (<32); Albumin 2.9 gm/dL (3.2-5.2); Albumin/Globulin Ratio 1.1 (1.0-2.3); Alkaline Phosphatase 106 U/L (39-117); Bilirubin,Direct < 0.2 mg/dL (0-0.3); Bilirubin,Total 0.4 mg/dL (0.1-1.0); Blood Urea Nitrogen 12 mg/dL (8-23); Calcium 8.2 mg/dL (8.6-10.4); Carbon Dioxide 28 mmol/L (22-30); Chloride 96 mmol/L (96-108); Globulin 2.7 gm/dL (2.2-3.7); Glomerular Filtration Rate 97; Glucose 400 mg/dL (70-105); Lactate Dehydrogenase 212 U/L (135-225); Phosphorous 3.2 mg/dL (2.5-4.5); Potassium 5.7 mmol/L (3.3-5.1); Sodium 132 mmol/L (133-145); Triglycerides 162 mg/dL (<150); Uric Acid 1.5 mg/dL (2.5-8.0)
[2024-07-30] MEDS: FUROSEMIDE 40 MG/4 ML VIAL IV SCH (08:07)
[2024-07-30] MEDS: SODIUM CHLORIDE 1 GM TABLET PO SCH (08:07)
[2024-07-30] MEDS: INSULIN GLARGINE, HUMAN 1 UNIT/0.01 ML SQ SCH (08:31)
[2024-07-30] MEDS: POLYETHYLENE GLYCOL 3350 17 GM PACKET PO SCH (13:18)
[2024-07-30] MEDS: NICOTINE 21 MG PATCH TOPICAL SCH (14:57)
[2024-07-30] MEDS: PYRIDOSTIGMINE BROMIDE 10 MG/2 ML AMPUL IV SCH (14:57)
[2024-07-30] MEDS ORDERED: DEXTROSE 31 GM ORAL.SUSP PO PRN (15:00)
[2024-07-30] MEDS ORDERED: DEXTROSE 50% 50 ML VIAL IV PRN (15:00)
[2024-07-30] MEDS: morphine 15 MG TABLET PO PRN (16:38)
[2024-07-30] MEDS: INSULIN LISPRO 1 UNIT/0.01 ML UNIT SQ SCH (17:07)
[2024-07-31 06:10] LABS: ALT/SGPT 13 U/L (<40); AST/SGOT 18 U/L (<32); Albumin 2.7 gm/dL (3.2-5.2); Albumin/Globulin Ratio 1.1 (1.0-2.3); Alkaline Phosphatase 94 U/L (39-117); Bilirubin,Direct < 0.2 mg/dL (0-0.3); Bilirubin,Total 0.3 mg/dL (0.1-1.0); Blood Urea Nitrogen 15 mg/dL (8-23); Calcium 8.1 mg/dL (8.6-10.4); Carbon Dioxide 27 mmol/L (22-30); Chloride 94 mmol/L (96-108); Globulin 2.5 gm/dL (2.2-3.7); Glomerular Filtration Rate 92; Glucose 434 mg/dL (70-105); Lactate Dehydrogenase 206 U/L (135-225); Phosphorous 3.2 mg/dL (2.5-4.5); Potassium 4.7 mmol/L (3.3-5.1); Sodium 132 mmol/L (133-145); Triglycerides 124 mg/dL (<150); Uric Acid 2.4 mg/dL (2.5-8.0)
[2024-07-31] MEDS: INSULIN GLARGINE, HUMAN 1 UNIT/0.01 ML SQ SCH ×2 (08:36→21:09)
[2024-07-31] MEDS: FUROSEMIDE 40 MG TABLET PO SCH (09:12)
[2024-07-31] MEDS: POLYETHYLENE GLYCOL 3350 17 GM PACKET PO SCH (09:19)
[2024-07-31] MEDS ORDERED: DEXTROSE 31 GM ORAL.SUSP PO PRN (10:18)
[2024-07-31] MEDS ORDERED: DEXTROSE 50% 50 ML VIAL IV PRN (10:18)
[2024-07-31] MEDS: INSULIN LISPRO 1 UNIT/0.01 ML UNIT SQ SCH (12:20)
[2024-08-01] MEDS ORDERED: IOPAMIDOL 100 ML BOTTLE IV ONE (08:38)
[2024-08-01] MEDS ORDERED: ACETAMINOPHEN 325 MG TABLET PO PRN (10:20)
[2024-08-01 12:04] VITALS: TEMP 97.8; O2SAT 98
== END 2024-08-01 16:36 | disposition home or self-care (01) | DRG 329 ==
LOC: MEDSUR 12:20 → ICU 07-26 21:28 → MEDSUR 07-29 14:01
PROVIDERS: ADMIT Family Medicine Adult Medicine; ATTEND Family Medicine Adult Medicine